=== PATIENT | female | born 1935 | race African-American/Black ===

== ENCOUNTER 2017-02-20 21:45 | Inpatient (IN) ==
[2017-02-21 01:46] LABS: MANUAL DIFF NEEDED? NO
[2017-02-21 01:53] LABS: URINE CULTURE NEEDED? NO; URINE MICRO REVIEW NEEDED? NO; URINE SOURCE CATH
[2017-02-21 02:00] LABS: BILIRUBIN URINE NEGATIVE (NEGATIVE); BLOOD URINE SMALL (NEGATIVE); COLOR YELLOW; GLUCOSE URINE TRACE mg/dL (NEGATIVE); LEUKOCYTES URINE NEGATIVE (NEGATIVE); NITRITE URINE NEGATIVE (NEGATIVE); PROTEIN URINE 100 mg/dL (NEGATIVE); SP GRAVITY URINE 1.011; TURBIDITY URINE CLEAR (CLEAR); UROBILINOGEN URINE NORMAL (NORMAL)
[2017-02-21 02:02] LABS: UR EPITHELIAL CELLS <10 /HPF (<10); URINE BACTERIA NEGATIVE /HPF; URINE RBC <10 /HPF (<10); URINE WBC <10 /HPF (<10)
[2017-02-21 02:18] LABS: ALBUMIN 3.2 g/dL (3.5-5.0); POTASSIUM 4.9 mmol/L (3.5-5.1); TOTAL BILIRUBIN 0.45 mg/dL (0.20-1.00); TOTAL PROTEIN 7.3 g/dL (6.3-8.3)
[2017-02-21 02:31] LABS: BASO% 0.1 % (0.0-0.8); EOS# 0.04 X1000 (0.0-0.7); EOS% 0.3 % (0.0-10.0); HEMATOCRIT 24.6 % (37.0-47.0); HEMOGLOBIN 8.1 g/dL (12.0-16.0); IMM GRAN# 0.08 X1000 (0.0-0.04); IMM GRAN% 0.6 % (0.0-0.5); LYMPH# 1.68 X1000 (1.2-3.4); LYMPH% 11.6 % (20.5-51.1); MCH 28.2 PG (27-31); MCHC 32.9 g/dL (33-37); MCV 85.7 FL (81-99); MONO# 2.04 X1000 (0.11-0.59); MONO% 14.1 % (1.7-9.3); MPV 11.1 FL (7.4-10.4); NEUT% 73.3 % (42.2-75.2); PLT 172 X1000 (130-400); RBC 2.87 XMIL (4.2-5.4)
--- NOTE | 2017-02-21 03:52 | ED EKG INTERP ---
This chart was entered by Karla Maria Scribe, acting as scribe for Jabier Ellington MD. EKG Interpretation - EKG Time of EKG reading by physician:: 21:45 EKG Read and Signed by:: Jabier Ellington EKG Interpretation (*Must complete 3 of following elements*): Abnormal Rate: 81 Rhythm: Normal sinus rhythm. [place]: left (PRT axis 15 -42 -5.) QRS: normal (QRS duration 92 ms.) MN Interval: normal (MN interval 168 ms.) Comments: Possible left atrial enlargement. Attestation - Physician/ DEEPIKA Attestation Patient care was provided by Advanced Practice Provider:: No The physician spent face to face time with patient:: Yes Advanced Practice Provider documentation review:: Supervising physician onsite and consulted in the evaluation and care of this patient. The physician did have a face to face encounter with the patient. This chart was documented by the indicated scribe, (Karla Maria Scribe) and accurately reflects the services I performed and decisions made by me, Jabier Ellington MD, as attested by the provider's signature.
[2017-02-21] MEDS ORDERED: NS 1,000 ML IV ONE ×2 (04:38→05:06)
[2017-02-21] MEDS ORDERED: AREDIA IV ONE (04:57)
[2017-02-21] MEDS ORDERED: NS IV ONE (04:57)
--- NOTE | 2017-02-21 04:57 | PROVIDER DOCUMENTATION ---
HPI-General Adult - General Chief Complaint: Weakness Stated Complaint: WEAKNESS Time Seen by Provider: 02/21/17 02:04 Source: patient, old records Allergies/Adverse Reactions: Patient Allergies Allergy/AdvReac Type Severity Reaction Status Date / Time No Known Allergies Allergy Verified 10/22/15 06:49 Home Medications: Home Medication List Medication Instructions Recorded Confirmed Last Taken Type Allopurinol 300 mg PO DAILY 11/17/13 02/11/17 11/10/16 04:00 History Clonidine [Catapres] 0.1 mg PO TID 11/17/13 02/11/17 11/10/16 04:00 History Omeprazole 20 mg PO DAILY 11/17/13 02/11/17 11/10/16 04:00 History Latanoprost 0.005% Oph Soln 1 drop RIGHT EYE HS 11/21/13 02/11/17 11/09/16 History [Xalatan 0.005% Oph Soln] ATORVAstatin [Lipitor] 20 mg PO QHS 10/18/15 02/11/17 11/09/16 History Dexamethasone 4 mg PO DIRECTED 10/18/15 02/11/17 10/21/15 07:00 History 4 Dorzolamide 2% Oph Soln [Trusopt 1 drop BOTH EYES BID 10/18/15 02/11/17 04:00 History 2% Oph Soln] Losartan Potassium 100 mg PO DAILY 10/18/15 02/11/17 11/08/16 History Amlodipine Besylate 5 mg PO DAILY 11/06/16 02/11/17 11/10/16 04:00 History Calcium Carbonate [Calcium] 600 mg PO DAILY 11/06/16 02/11/17 11/10/16 04:00 History Hydrocodone/Acetaminophen [[place] 1 each PO PRN PRN 11/06/16 02/11/17 2 Weeks Ago History 5-325 Tablet] Ipratropium/Albuterol Sulfate 3 ml IH Q4H PRN PRN 11/06/16 02/11/17 11/08/16 History [Iprat-Albut 0.5-3(2.5) mg/3 ml] Methylphenidate HCl [Ritalin] 10 mg PO DAILY 11/06/16 02/11/17 11/10/16 04:00 History Aspirin [Low Dose Aspirin EC] 81 mg PO DAILY 02/11/17 02/11/17 Unknown History Lidocaine/Prilocaine [Lido-Prilo 1 each TP PRN 02/11/17 Unknown History Paras Pack] - History of Present Illness -Gen Adult Nature of Presenting Problems: 81 yo RAMONA is under treatment for multiple myeloma by Dr Harley and was doing well until a week or so ago. She apparently received two units of packed RBC last week and felt a little better but the last week or so has been profoundly weak. Location of Pain/Injury: reports: none Similar Symptoms Previously?: No Recently seen or treated by another doctor?: No Review of Systems - Adult - REVIEW OF SYSTEMS - ADULT Constitutional: reports: see HPI. denies: chills, fever Eyes: reports: no symptoms reported Ears, Nose, Mouth & Throat: reports: no symptoms reported Cardiovascular: reports: no symptoms reported Respiratory: reports: no symptoms reported Gastrointestinal: reports: constipation, frequent heartburn Genitourinary: reports: no symptoms reported Integumentary: reports: no symptoms reported Neurological: reports: loss of balance Psychiatric: reports: no symptoms reported Endocrine: reports: see HPI Past History - Adult - PAST MEDICAL HISTORY-ADULT Review of Records: reports: Old Records Reviewed, Nursing Assessment Review, Medications Reviewed Major Childhood Illnesses: reports: denies history Cardiovascular: reports: HTN, hyperlipidemia Respiratory: reports: denies history Gastrointestinal: reports: GERD Obstetrical/Gynecological: reports: denies history Genitourinary: reports: kidney disease Musculoskeletal: reports: cancer (bone) Neurological: reports: denies history Endocrine/Immune: reports: denies history Other Conditions: reports: denies history - PRIOR SURGERIES/PROCEDURES Surgical/Procedure History: reports: cholecystectomy - PRIOR HOSPITALIZATIONS Prior Hospitalizations: reports: for other non-related - IMMUNIZATION STATUS Childhood Immunizations: See Nurse Assessment Flu Vaccine: See Nurse Assessment - FAMILY HISTORY Family History: reviewed, not pertinent Physical Exam-General - PHYSICAL EXAM-ADULT Initial Vital Signs Reviewed: Yes - CONSTITUTIONAL General Appearance: obese, lethargic, slow to respond - EYES Eyes: PERRL/EOMI, pale conjunctivae - HEAD, EARS, NOSE, MOUTH & THROAT HENMT: normocephalic/atraumatic, moist mucous membranes, normal ENT inspection - NECK Neck: non-tender, full range of motion, supple - RESPIRATORY Respiratory: chest non-tender, lungs clear, normal breath sounds - CARDIOVASCULAR Cardiovascular: normal peripheral pulses - GASTROINTESTINAL (ABDOMEN) Abdominal Exam: non tender, no organomegaly - LYMPHATIC Lymphatic: no adenopathy - MUSCULOSKELETAL Back Exam: normal inspection, no CVA tenderness, no vertebral tenderness Extremity: normal range of motion - SKIN Integumentary: normal color, normal turgor - NEUROLOGIC Neurologic: grossly normal Progress - PLAN OF CARE/RESULTS Progress/Plan/Lab Results: Vital Signs - 8 hr 02/20/17 21:51 02/21/17 00:43 02/21/17 02:25 Temperature 98.8 F Pulse Rate 87 76 86 Respiratory Rate 18 17 Blood Pressure 116/46 144/60 124/59 O2 Sat by Pulse Oximetry 97 92 L 91 L 02/21/17 04:29 Temperature Pulse Rate 110 H Respiratory Rate Blood Pressure 135/73 O2 Sat by Pulse Oximetry 92 L Laboratory Results - last 24 hr 02/21/17 02/21/17 02/21/17 01:15 01:15 01:40 WBC 14.43 H RBC 2.87 L Hgb 8.1 L Hct 24.6 L MCV 85.7 MCH 28.2 MCHC 32.9 L RDW Std Deviation 17.6 H Plt Count 172 MPV 11.1 H Immature Gran % (Auto) 0.6 H Neut % (Auto) 73.3 Lymph % (Auto) 11.6 L [place] % (Auto) 14.1 H Eos % (Auto) 0.3 Baso % (Auto) 0.1 Immature Gran # (Auto) 0.08 H Neut # (Auto) 10.58 H Lymph # (Auto) 1.68 [place] # (Auto) 2.04 H Eos # (Auto) 0.04 Baso # (Auto) 0.01 Sodium 132 L Potassium 4.9 Chloride 100 Carbon Dioxide 18 L Anion Gap 14 BUN 66 H Creatinine 6.5 H Estimated GFR/1.73 m2 7 BUN/Creatinine Ratio 10 Glucose 119 H Calculated Osmolality 285 Calcium 13.0 H* Total Bilirubin 0.45 AST 19 ALT 10 Alkaline Phosphatase 46 Total Protein 7.3 Albumin 3.2 L Globulin 4.1 Albumin/Globulin Ratio 0.8 Urine Source CATH Urine Color YELLOW Urine Turbidity CLEAR Urine pH 6.0 Ur Specific [place] 1.011 Urine Protein 100 A Ur Glucose (Stick) TRACE Ur Ketones (Stick) NEGATIVE Urine Blood SMALL A Urine Nitrite NEGATIVE Urine Bilirubin NEGATIVE Urobilinogen Dipstick NORMAL Urine Leukocytes NEGATIVE Urine WBC (Auto) <10 Urine RBC (Auto) <10 U Epithel Cells (Auto) <10 Urine Bacteria (Auto) NEGATIVE Orders Category Date Time Status BLOOD CULTURE [BLDCUL] Stat Lab 02/21/17 01:15 Results CBC WITH DIFF [HEME] Stat Lab 02/21/17 01:15 Completed COMPREHENSIVE METABOLIC PANEL [CHEM] Stat Lab 02/21/17 01:15 Completed I-STAT IONIZED CALCIUM [RESP] Routine Lab 02/21/17 04:43 Ordered URINALYSIS W/POSS RFLX CULT-1 [URINALYSIS] Stat Lab 02/21/17 01:40 Completed 0.9% Sodium Chloride Inj [Ns] 1,000 ml Med 02/21/17 04:38 Active IV 100 mls/hr EKG [EKG] Stat Ther 02/20/17 21:49 Ordered Result Diagrams: 02/21/17 01:15 02/21/17 01:15 - CONSULTS/PCP/HOSPITALIST Notification #1 *Consult/PCP/Hospitalist*: Dr Restrepo Time Discussed: 04:00 Consult Disposition: Will see in ED, Admit Departure - Departure Date of Disposition Decision: 02/21/17 Time of Disposition Decision: 04:00 DIAGNOSIS: Hypercalcemia of malignancy Acute renal failure Qualifiers: Acute renal failure type: unspecified Qualified Code(s): N17.9 - Acute kidney failure, unspecified Disposition: ADMITTED INPATIENT 09 Certified Medical Emergency: Emergent Condition: Poor - Critical Care Note This patient required my direct & personal management of CC.: Yes Total Time (mins): 30 Critical Care Statement: This patient required my direct personal management to treat or rule out processes, the absence of which, could potentiallly result in sudden, clinically significant life or limb threatening deterioration. Attestation - Physician/ DEEPIKA Attestation Patient care was provided by Advanced Practice Provider:: No The physician spent face to face time with patient:: Yes Advanced Practice Provider documentation review:: Supervising physician onsite and consulted in the evaluation and care of this patient. The physician did have a face to face encounter with the patient.
--- NOTE | 2017-02-21 07:03 | HISTORY AND PHYSICAL ---
PRIMARY CARE PROVIDER: Dr. Elfego Harley, oncologist. FIELD EDUCATION COORDINATOR: Dr. Moore. CHIEF COMPLAINT: Weakness in legs. HISTORY OF PRESENT ILLNESS: Briefly this is an unfortunate 81-year-old female with a history of multiple myeloma with mets to her bones, hypertension, COPD, anemia of chronic disease and end- stage renal disease. She presents to the emergency room today with a complaint of weakness in her legs. She reportedly saw Dr. Harley this previous Thursday. At any rate, she continued having increasing weakness to the point where she came into the emergency room tonight. Laboratory data was obtained which showed a white blood cell count of 14.43, hemoglobin and hematocrit of 8.1 and 24.6, a sodium of 132, a BUN of 66, a creatinine of 6.5, and a calcium of 13. The patient received pamidronate in the emergency room. No family was at the bedside at the time of interview. The patient was a fairly poor historian. The treatment plan was gone over with the patient and she did state that she understood she will be admitted to CICU for further evaluation and treatment. PAST MEDICAL HISTORY: 1. Multiple myeloma with bone mets. 2. COPD. 3. Gout. 4. Hypertension. PREVIOUS SURGICAL HISTORY: 1. A knee surgery. 2. Cholecystectomy. 3. Right Port-A-Cath placement. SOCIAL HISTORY: Lives at home with her daughter. Has a remote history of tobacco use. The patient was unsure what year she quit. Denies alcohol or illicit drug use or abuse. FAMILY HISTORY: Father from myocardial infarction. The patient was unable to tell me any other chronic health issues in family members. ALLERGIES: No known drug allergies. HOME MEDICATIONS: The list was not reconciled. The patient did state that her son has a list of her medications. He was not available at the time of interview. An order was placed for nursing to reconcile home medications and place in the computer. REVIEW OF SYSTEMS: Fourteen point review of systems conducted with the patient. Pertinent positives listed above in the HPI. All other systems reviewed and found to be negative. PHYSICAL EXAMINATION: VITAL SIGNS: Temperature 98.8 degrees, pulse 110, respirations 135/73, oxygen saturation 94% on room air. GENERAL: Pleasant, 81-year-old, female, somewhat confused to some details of her medical history, lying in the ER stretcher. Is awake, alert, oriented to person , place, and time. In no acute distress. HEENT: Head is atraumatic, normocephalic. Pupils equal, round, reactive to light. Extraocular eye movement is intact. Sclerae is anicteric. Conjunctivae is pale. Oral mucosa is mildly dry. NECK: Supple. No JVD. No thyromegaly. Trachea is midline. No cervical lymphadenopathy. CARDIAC: S1, S2 appreciated. No murmurs, gallops, or rubs. LUNGS: Somewhat decreased bilaterally. Mild expiratory wheeze heard in the upper lung marcum does clear with cough. No rhonchi. No rales. Symmetrical rise and fall with respirations. ABDOMEN: Soft, nondistended, nontender. Bowel sounds present in all 4 quadrants. Normoactive. No pulsatile mass. No organomegaly. EXTREMITIES: No clubbing, cyanosis, or edema. 2+ pedal pulses bilaterally. GENITOURINARY: Breaux catheter in place draining clear yellow urine. Otherwise deferred. NEUROLOGICAL: Alert, alert and oriented to person, place, and time. She is somewhat confused to some aspects of her medical history but is appropriate. Cranial nerves 2-12 appear to be grossly intact. MUSCULOSKELETAL: 4/5 upper extremity strength, equal bilaterally. 3/5 lower extremity strength equal bilaterally. Patient is able to hold lower extremities against gravity. SKIN: Warm, dry and intact. No acute lesions or rash. DIAGNOSTIC DATA: EKG showed a normal sinus rhythm, rate 81 with left axis deviation, possible left atrial enlargement. LABORATORY DATA: WBC 14.43, hemoglobin 8.1, hematocrit 24.6, platelet count 172 ,000. Sodium 132, potassium 4.9, chloride 100, carbon dioxide 18. BUN 66, creatinine 6.5. Glucose 119. Calcium 13. Urine 100 of protein, otherwise unremarkable. ASSESSMENT AND PLAN: 1. Hypercalcemia this is likely secondary to multiple myeloma with bone mets. Pamidronate was given in the emergency room. The patient also received normal saline, 500 mL. We will consult Dr. Moore and Dr. Harley. Recheck calcium level at noon today. Check ionized calcium. If pamidronate and fluids are unsuccessful, patient may possibly need acute dialysis with a low calcium bath. 2. Chronic obstructive pulmonary disease without exacerbation. Aware. Will add p.r.n. DuoNeb as needed for wheezing. 3. Hypertension. Patient is normotensive at this time. An order was placed for nursing to reconcile home medications. These will be restarted when appropriate. 4. Anemia likely of chronic disease. This appears to be stable. We will order anemia panel and trend labs. 5. Further recommendations per clinical course. Dictated by MINDI Alejo for Arnoldo Restrepo MD I have personally evaluated and did physical exam on patient. Dr. Restrepo cc: MINDI Alejo MD Reginald D. Gladish, MD Sammy Becdach, MD MTDD
[2017-02-21] MEDS: PROTONIX IV SCH (07:50)
[2017-02-21] MEDS ORDERED: NS 1,000 ML ONE (07:53)
[2017-02-21] MEDS ORDERED: TIGHT: 0.2 ML/HR MISC PRN (09:42)
[2017-02-21] MEDS ORDERED: NS 2,000 ML MISC PRN (09:42)
[2017-02-21] MEDS ORDERED: HEPARIN IV PRN (09:42)
[2017-02-21] MEDS ORDERED: HEPARIN ONE (10:37)
[2017-02-21] MEDS ORDERED: NS 2,000 ML ONE (10:37)
[2017-02-21] MEDS ORDERED: EPOGEN SUBQ ONE (13:52)
[2017-02-21] MEDS: HEPARIN SUBQ SCH ×2 (15:08→20:45)
--- NOTE | 2017-02-21 16:44 | CONSULTATION ---
DATE OF CONSULTATION: 02/21/2017 REASON FOR CONSULTATION: For multiple myeloma, hypercalcemia, patient known. HISTORY OF PRESENT ILLNESS: Ms. Mcconnell is a 81-year-old, female, who is known to our practice as she is currently under the care of Dr. Elfego Harley for multiple myeloma. The patient presented to the [facility] Emergency Department earlier today complaining of weakness in her bilateral legs. Labs revealed the patient to have elevated calcium level at 13 with a creatinine of 6.5. The patient received pamidronate in the emergency room. Plan was for the patient to be evaluated by Nephrology. It seems that the patient was seen on 02/18/2017 in our office. She has been experiencing renal failure for some time. Her creatinine on 02/18/2017 in our office was 6.81. At that time, she also had a calcium of 13.4 corrected. On 02/18/2017, the patient received 2 mg of Zometa. Dose reduction was done secondary to the patient's renal function. Patient did contact our office yesterday reporting a 102 temperature. At that time, she was told to come to the emergency department. Emergency department workup as per above. The patient has been receiving Velcade and Decadron for her multiple myeloma. She is also currently receiving Aranesp. She received her Velcade, Aranesp also on 02/18/2017. Patient is status post [facility] at the end of January. The patient currently reports that she is doing okay. Per the nursing staff, the patient is due to go to dialysis at this time. PAST MEDICAL HISTORY: 1. Multiple myeloma with bone disease. 2. COPD. 3. Gout. 4. Hypertension. 5. Renal insufficiency. PREVIOUS SURGERY: 1. Status post knee surgery. 2. Cholecystectomy. 3. Port-A-Cath placement. SOCIAL HISTORY: Patient currently lives with her daughter. Her son is here with her today. She has a remote history of tobacco use. The patient quit smoking about 1 year ago. She denies any current alcohol or illicit drug use. FAMILY HISTORY: She has a father who from a myocardial infarction. The patient is a poor historian and was unable to give any further family history. REVIEW OF SYSTEMS: A 12 point review of systems has been completed and is negative except for what is expressed in the HPI. PHYSICAL EXAMINATION: Vital Signs: Temperature 98.2 degrees, heart rate 88, respirations 16, blood pressure 133/66, O2 saturation 97% on 3 L nasal cannula. General: This is an female, lying in a hospital bed in the emergency department. She appears to be comfortable. She is in no acute distress. Son is at bedside. HEENT: Head normocephalic, atraumatic. Eyes: Pupils equal, round, reactive. Ears, nose, throat, neck, and mouth: Oral mucosa appears to be normal. Trachea is midline. Gross auditory acuity is intact. Cardiovascular: S1-S2 heard. No murmurs, gallops, rubs appreciated. Respiratory: Chest is essentially clear to auscultation bilaterally. Normal respiratory effort. Gastrointestinal: Abdomen is soft, nontender, nondistended with positive bowel sounds. Musculoskeletal: No obvious bony abnormalities. Extremities: The patient has some trace edema bilateral lower extremities. Neurologic: Patient is alert and oriented, with no focal motor deficits noted. LABS AND STUDIES: White blood cells 14.43, hemoglobin 8.1, hematocrit 24.6, platelet count 172,000. Ionized calcium 1.89, sodium 132, potassium 4.9, chloride 100, CO2 18 , BUN 66, creatinine 6.5, glucose 119. Calcium 13.0. EKG done earlier today shows the patient to be in normal sinus rhythm. ASSESSMENT: 1. Multiple myeloma. Currently on Velcade and dexamethasone. Last treatment received 02/18/2017. The patient's last SPEP done on 02/04/2017 appears to be overall stable, M-spike 1 at that time was 0.5, M-spike 2 was 0.3. This was improved from her last check in December. 2. Hypercalcemia. Likely due to both her bone metastases as well as multiple myeloma as well as renal insufficiency. The patient is status post Zometa on 02/18/2017. She has also now received pamidronate here at the hospital. According to orders from Dr. Moore, the patient is now going to hemodialysis. 3. Renal insufficiency. The patient has a history of chronic kidney disease, stage 4. She has already had a fistula placed. She is being followed by Nephrology prior to this admission. Hemodialysis as per above per Dr. Moore. 4. Chronic obstructive pulmonary disease. Continue current management. 5. Hypertension. Continue current management. 6. Anemia likely secondary to chronic disease as well as her multiple myeloma. The patient has recently received iron repletion and she is status post Aranesp injection on 02/18. Hemoglobin appears to be close to her baseline. 7. Leukocytosis. Patient is taking steroids for multiple myeloma. She had leukocytosis early this week when she was seen. Blood cultures are currently pending. She did report a fever which prompted her to be told to come to the emergency department. Follow up on cultures. We want to thank you for consulting us on Ms. Mcconnell and allowing us to participate in her care. Dictated by CARL Bashir for Carmen Nguyen MD cc: MD Yeimi Wallace MD I have seen and examined the patient , reviewed the chart, and agree with the above note. The assessment and plan reflects my recommendations. Carmen AMAYA
--- NOTE | 2017-02-21 20:49 | CONSULTATION ---
DATE OF CONSULTATION: 02/21/2017 REASON FOR CONSULTATION: Renal failure and hypercalcemia. HISTORY OF PRESENT ILLNESS: Ms. Mcconnell is a 81-year-old woman who follows with us in the office. She has known CKD stage 5 secondary to myeloma. She was examined in our office earlier this week but did not have labs collected. They were collected after her encounter and her creatinine was over 6 and calcium was 13. Over the ensuing days she became much more weak and ultimately was unable to meet her own physical needs so she came to the emergency room. No chest pain, nausea, vomiting, shortness of breath. PAST MEDICAL HISTORY: As above. She is followed by Dr. Harley. HOME MEDICATIONS: Include allopurinol, clonidine, atorvastatin, losartan, methylphenidate, amlodipine. ALLERGIES: None. SOCIAL HISTORY: She lives with her daughter. No current alcohol or tobacco use. FAMILY HISTORY: Noncontributory. REVIEW OF SYSTEMS: Otherwise noncontributory. PHYSICAL EXAM: Vital Signs: Blood pressure 133/66, heart rate 88, respirations 16, afebrile. General: She is in no acute distress. Skin: Warm and dry. Conjunctivae are pink. Neck: Neck veins are not appreciated. Trachea is midline. Heart: Regular. Lungs: Have equal breath sounds. No dullness, crackles, wheezes. Abdomen: Soft, nontender. Bowel sounds present. No organomegaly or masses or bruits. Extremities: Have trace edema. No clubbing or cyanosis. IMPRESSION: Chronic kidney disease stage 5. Given her progressive symptoms and unmanaged hypercalcemia, dialysis is indicated. She has a fistula in the left arm which we are able to cannulate without difficulty today. She is on dialysis at the time of my examination at 12 o'clock. We will use a 2 calcium bath and 2 potassium bath and a 2 hour duration today. Her next scheduled dialysis will be Thursday. Her hemoglobin is below target and this will need to be treated with ongoing erythropoietin. Her hypercalcemia was treated with a dose of pamidronate in the emergency room so no further bisphosphonate therapy will be indicated for the short term. cc: MD Yeimi Anaya MD
--- NOTE | 2017-02-22 04:09 | PROGRESS NOTE ---
DATE: 02/21/2017 SUBJECTIVE: Patient without any new complaints. She states that she is still very tired and fatigued. Notes that she is starting to move her lower extremities a little bit better. Denies focalized weakness. States that both are weak. Denies any weakness in her upper extremities. Denies any chest pain or palpitations. Denies any fevers or chills. Denies GI or issues. PHYSICAL EXAMINATION: Vital Signs: Temperature 98.2 degrees, pulse 110, respiratory rate 18-20, BP 144/62, saturation 91% on room air. General: Patient is awake, alert. She is currently in no respiratory distress. Neck: Supple. No JVD. CV: Regular rate. No murmurs. Chest: Clear. Nonlabored. Abdomen: Soft, nondistended, nontender. Extremities: Moves upper extremities well. She has generalized weakness of her lower extremities. LABORATORY DATA: WBCs 14. Sodium 132, BUN 60, creatinine 6.5. ASSESSMENT: 1. Frequent falls due to generalized weakness in her lower extremities. 2. Generalized weakness. 3. Hypercalcemia. 4. Multiple myeloma. 5. Hypertension. 6. Chronic obstructive pulmonary disease without exacerbation. PLAN: We will admit patient to the hospital. She has already been given pamidronate in the ER. We will continue to follow her calcium. We will get physical therapy involved for her lower extremity weakness. Her repeat calcium is pending. Should it still be elevated, we will consult Dr. Moore. cc: MD Yeimi Cross MD
[2017-02-22] MEDS: HEPARIN SUBQ SCH ×3 (04:43→21:29)
[2017-02-22 05:40] LABS: MANUAL DIFF NEEDED? NO
[2017-02-22 05:48] LABS: BASO% 0.1 % (0.0-0.8); EOS# 0.04 X1000 (0.0-0.7); EOS% 0.2 % (0.0-10.0); HEMATOCRIT 24.7 % (37.0-47.0); HEMOGLOBIN 8.2 g/dL (12.0-16.0); IMM GRAN# 0.07 X1000 (0.0-0.04); IMM GRAN% 0.4 % (0.0-0.5); LYMPH# 0.88 X1000 (1.2-3.4); LYMPH% 5.4 % (20.5-51.1); MCH 28.6 PG (27-31); MCHC 33.2 g/dL (33-37); MCV 86.1 FL (81-99); MONO# 2.42 X1000 (0.11-0.59); MPV 11.6 FL (7.4-10.4); NEUT% 78.9 % (42.2-75.2); PLT 191 X1000 (130-400); RBC 2.87 XMIL (4.2-5.4)
[2017-02-22 05:56] LABS: CALCIUM 10.7 mg/dL (8.8-10.2); POTASSIUM 4.2 mmol/L (3.5-5.1)
[2017-02-22] MEDS: PROTONIX IV SCH (08:18)
--- NOTE | 2017-02-22 15:34 | PROGRESS NOTE ---
DATE: 02/22/2017 SUBJECTIVE: Patient complains of left-sided abdominal pain at this point. The patient without new complaints this morning. Denies any chest pain, palpitations. Denies any nausea or vomiting. States that her breathing is a little bit better. OBJECTIVE: Vital signs: Temperature 100.7, pulse 98, respiratory 18-20, BP 111/47. General: Patient is awake, alert. Currently in no real respiratory distress. Pleasant to talk with. Neck: Supple. No JVD. CV: Regular rate. Chest: Clear. Nonlabored. Abdomen: Soft, obese. Extremities: Moves all extremities. ASSESSMENT: 1. Hypercalcemia, improved. Current calcium is at 10.7. She received pamidronate in the ER and also want to dialysis yesterday. 2. Leukocytosis. Mildly elevated at 16. Will continue to follow. 3. Chronic renal failure stage 5. She did receive a hemodialysis yesterday and per Dr. Moore will receive dialysis again tomorrow. 4. Chronic obstructive pulmonary disease. Continue neb treatments. cc: MD Yeimi Cross MD
[2017-02-23] MEDS: HEPARIN SUBQ SCH ×3 (04:03→20:31)
--- NOTE | 2017-02-23 05:49 | EKG Report ---
Test Performed on : 02/22/2017 07:02:26 AM Test Reason : chest pain Blood Pressure : / mmHG Vent. Rate : 097 BPM Atrial Rate : 097 BPM P-R Int : 170 ms QRS Dur : 094 ms QT Int : 326 ms P-R-T Axes : 023 -36 005 degrees QTc Int : 414 ms Sinus rhythm. with premature atrial complexes. Left axis deviation Cannot rule out Anterior infarct , age undetermined Abnormal ECG When compared with ECG of 20-FEB-2017 21:45, (Unconfirmed) premature atrial complexes. are now present Unconfirmed Result
[2017-02-23 06:13] LABS: CALCIUM 10.4 mg/dL (8.8-10.2); POTASSIUM 4.5 mmol/L (3.5-5.1)
--- NOTE | 2017-02-23 06:45 | EKG Report ---
Test Performed on : 02/20/2017 9:45:14 PM Test Reason : WEAKNESS Blood Pressure : / mmHG Vent. Rate : 081 BPM Atrial Rate : 081 BPM P-R Int : 168 ms QRS Dur : 092 ms QT Int : 356 ms P-R-T Axes : 015 -42 -05 degrees QTc Int : 413 ms Normal sinus rhythm. Possible Left atrial enlargement Left axis deviation Abnormal ECG When compared with ECG of 06-NOV-2016 11:39, No significant change was found Unconfirmed Result
[2017-02-23] MEDS ORDERED: NS 2,000 ML MISC PRN (06:50)
[2017-02-23] MEDS ORDERED: TIGHT: 0.2 ML/HR MISC PRN (06:50)
[2017-02-23] MEDS ORDERED: HEPARIN IV PRN (06:50)
[2017-02-23] MEDS: PROTONIX IV SCH (08:17)
[2017-02-23] MEDS: SODIUM CHLORIDE 0.9% INJ SCH (08:17)
[2017-02-23] MEDS ORDERED: MERREM 500 MG in NS 50 ML IV SCH (09:00)
--- NOTE | 2017-02-23 10:00 | Diag Imaging Result Doc PS360 ---
CHEST-2 VIEWS - 02/23/2017 INDICATION: Fever; Leukocytosis TECHNIQUE: COMPARISON: 01/25/2014 FINDINGS: There is a new right chest port in good position. Stable severe cardiomegaly. Pulmonary vascularity is top normal. There is some infiltrate in the left lower lobe. No pneumothorax or large effusion. IMPRESSION: Left lower lobe infiltrate concerning for pneumonia. Severe cardiomegaly. Electronically signed by Amrik Romano 02/23/2017 9:57 AM
[2017-02-23] MEDS ORDERED: VANCOMYCIN IV PER PHARMACY MISC SCH (11:15)
[2017-02-23] MEDS ORDERED: HEPARIN ONE (11:16)
[2017-02-23] MEDS ORDERED: NS 2,000 ML ONE (11:16)
--- NOTE | 2017-02-23 12:22 | PROGRESS NOTE ---
DATE: 02/23/2017 TIME SEEN: 0810 SUBJECTIVE: Ms. Mcconnell is resting quietly in bed. Head of the bed is elevated. Her son is at her bedside. She is in no acute distress, though she does remain chronically ill. OBJECTIVE: Her most recent vital signs: Previous temperature 100.4 degrees, blood pressure 116/50, heart rate is 100, respirations are 24. She remains on 2 L nasal cannula. Last recorded saturation is 98%. She has had 720 in. She has had 925 out per Breaux catheter. Her most recent labs: Sodium 132, potassium 4.5, chloride 94, CO2 23, BUN 45, creatinine 5.6, glucose 108, anion gap 15, calcium 10.4, phosphorus 2.1. Albumin of 3. Previous hemoglobin 8.2 on the with a white count of 16.18. PHYSICAL EXAMINATION: General: This is a 81-year-old female. She is currently resting in bed. She is in no acute distress. Skin: Warm and dry. HEENT: Normocephalic, atraumatic. Conjunctiva is pale. She has KYRA. Mucous membranes are moist. Neck: Supple. Trachea midline. No JVD evident. Cardiovascular: She is regular rate and rhythm. She does have a positive S4. Lungs: Clear to auscultation anteriorly. Diminished posterior bases. She remains on O2. Equal excursion. The patient has a port to her right chest wall. Abdomen: Soft, nontender. Positive bowel sounds. Genitourinary: Breaux catheter remains in place. Adequate urine out. Extremities: Have trace pretibial edema. No clubbing or cyanosis. Extremities as indicated with no edema. No clubbing or cyanosis. She has an AV fistula to the left forearm with positive thrill. ASSESSMENT AND PLAN: 1. Chronic kidney disease stage 5 with progression. Patient remains uremic. She continues with hypercalcemia. She could has continued to have adequate urine output. Again , we will plan for dialysis today. We will place her on a 2 K bath. She is to dialyze for 2-1/2 hours. We will attempt to pull 2-3 L of ultrafiltration, with plans for hemodialysis over the next 3 days to build patient up to a 4-hour treatment. 2. Electrolytes. Patient has mild hyponatremia secondary to #1. Hypercalcemia - This continues to improve with a calcium down to 10.4. Patient was originally treated with pamidronate in the emergency room with no other further indications with correction on dialysis. 3. Acid-base balance. Patient has mild anion gap acidosis, which is currently closing with metabolic acidosis which is improving. Correction on dialysis is noted. 4. Anemia, this remains stable. No indications for intervention at this time. I would to thank you for allowing us to follow with this patient. Dictated by MINDI Bañuelos for Ye Moore MD Patient seen, data reviewed, discussed with Geoffrey Rosenbaum on 02/23/17. I agree with the above assessment and plan of care. cc: MINDI Bañuelos MD Adnan A. Seljuki, MD [facility]
[2017-02-23] MEDS: MAXIPIME 1 GM in NS 50 ML IV SCH (13:09)
[2017-02-23 13:14] LABS: HEPATITIS PROFILE ACUTE SEE COMMENTS
[2017-02-23] MEDS ORDERED: VANCOMYCIN 1 GM/NS 1 GM/250 ML IVPB IV ONE (14:00)
[2017-02-23] MEDS ORDERED: VANCOMYCIN 1 GM/NS 1 GM/250 ML IVPB IV SCH (16:00)
[2017-02-23] MEDS: EPOGEN SUBQ SCH (16:59)
--- NOTE | 2017-02-23 16:59 | CONSULTATION ---
DATE OF CONSULTATION: 02/23/2017 CONCLUSION: Dr. Mancini asked me to see the patient regarding leukocytosis. I think this is secondary to a left lower lobe pneumonia. RECOMMENDATIONS: I have discontinued meropenem and placed the patient on cefepime. The dose has been modified because of the patient's renal failure. Also I have added vancomycin and requested the pharmacy to dose the drug. I have also ordered a sputum for Gram stain and culture. DISCUSSION: The patient told me that she was admitted to the hospital because her legs were weak for the past 2 weeks. She denied having shortness of breath or coughing. She was not having any fever chills that she can remember. LAB AND X-RAY: Laboratory studies thus far show a CBC with a white count of 16,180, hemoglobin 8.2, and platelet count 191,000. Creatinine is 5.6, GFR is 9. Urinalysis showed no white cells or bacteria. Blood cultures x2 and urine culture show no growth. More recent blood cultures have been drawn and the results are pending. Chest x-ray shows a left lower lobe infiltrate. PAST MEDICAL HISTORY/REVIEW OF SYSTEMS: Eyes and ears: The patient says she has decrease in her vision but not her hearing. Neck: No stiffness. Respiratory: She is not complaining of cough or dyspnea. Cardiovascular: No chest pain or palpitations. GI: No nausea, vomiting, or diarrhea. Genitourinary: No dysuria or flank pain. Endocrine: Patient does not have diabetes or thyroid disease. Neurologic: Patient has weak legs. She has not had any seizures or tremor. MANAGER BOOK HISTORY: She is a 4, para 4, AB 0. INFECTIOUS DISEASE HISTORY: Positive for pneumonia. Negative for UTI. PREVIOUS HOSPITALIZATIONS AND OPERATIONS: She has had knee surgery, cholecystectomy, placement of a right-sided Port-A-Cath, and 4 labor and deliveries. MEDICAL DISEASES: Positive for multiple myeloma, COPD, gout, hypertension, and hyperlipidemia. FAMILY HISTORY: Positive for myocardial infarction. The patient could not remember any other illnesses in the family. SOCIAL HISTORY: The patient lives at home with her daughter. She smoked cigarettes some time in the past but not recently. She did not does not drink alcoholic beverages or abuse drugs. She does not have any pets at home. ALLERGIES: She has no known drug allergies. HOME MEDICATIONS: Consist of Catapres, allopurinol, Lipitor, Norvasc, Ritalin, and losartan. PHYSICAL EXAMINATION: Vital Signs: Temperature is 100.4 degrees, pulse 100, respirations 24, blood pressure 116/50. General: This is a chronically ill-appearing, elderly female. She is in no acute distress. Head, eyes, ears, nose, and throat: She can hear my spoken words and see near objects. She had dentures on the bottom, in the mandibular area. She did not have any teeth in the maxillary area. Neck: No meningismus. Thorax: No increased AP diameter of the chest. The patient has a Port-A-Cath present on the right side. The site is not swollen or tender. Lungs: Clear to auscultation. Cardiovascular: Heart rate is irregular. There is bilateral leg edema. There were diminished peripheral pulses. Abdomen: Soft and nontender. Neurologic: Patient is awake. She can move her extremities but she is weak. There is no tremor. Thank you for the consult. cc: MD Yeimi Jean MD
[2017-02-24] MEDS: HEPARIN SUBQ SCH ×3 (04:40→20:20)
[2017-02-24] MEDS: TYLENOL PO PRN ×2 (05:48→20:20)
[2017-02-24 05:56] LABS: ALBUMIN 2.8 g/dL (3.5-5.0); CALCIUM 8.5 mg/dL (8.8-10.2); POTASSIUM 3.8 mmol/L (3.5-5.1)
[2017-02-24] MEDS ORDERED: TIGHT: 0.2 ML/HR MISC PRN (07:12)
[2017-02-24] MEDS ORDERED: HEPARIN IV PRN (07:12)
[2017-02-24] MEDS ORDERED: NS 2,000 ML MISC PRN (07:12)
[2017-02-24] MEDS: PROTONIX IV SCH (07:45)
--- NOTE | 2017-02-24 08:25 | PROGRESS NOTE ---
DATE: 02/24/2017 PRESENT ILLNESS: The patient has a left lower lobe pneumonia. I think this is responsible for her leukocytosis and fever. MEDICATIONS: The patient currently is on vancomycin and cefepime, both being given intravenously. The doses of both also have been modified because of the patient's renal failure. PHYSICAL EXAMINATION: Vital Signs: Temperature is 102.3 degrees, pulse 97, respirations 14, blood pressure 108/35. Generally, this is an ill-appearing elderly female. She is in no acute distress. Lungs: Clear to auscultation. Cardiovascular: Heart rate is irregular. Abdomen is soft and nontender. Thorax: The patient has a Port-A-Cath present in the right side of her chest. The site is not swollen or tender. Neurologic: The patient is sleepy today. There is no tremor. LABORATORY DATA AND X-RAY: Creatinine is 4.5. GFR is 11. Blood and urine cultures are sterile. Chest x-ray shows a left lower lobe infiltrate that is concerning for pneumonia. PLAN: The plan is to continue with both antibiotics, namely vancomycin and cefepime. I realize that she did spike a fever and that she still has leukocytosis, however, I think it is going to take a few days before we see the full effect of the antibiotics working. I do plan on ordering a CBC for tomorrow morning. Comorbidities: Multiple myeloma, COPD. cc: MD Yeimi Jean MD
[2017-02-24] MEDS ORDERED: HEPARIN ONE (08:26)
[2017-02-24] MEDS ORDERED: NS 2,000 ML ONE (08:26)
[2017-02-24 08:27] LABS: BASO% 0.1 % (0.0-0.8); EOS# 0.05 X1000 (0.0-0.7); EOS% 0.2 % (0.0-10.0); HEMATOCRIT 21.6 % (37.0-47.0); HEMOGLOBIN 7.1 g/dL (12.0-16.0); IMM GRAN# 0.14 X1000 (0.0-0.04); IMM GRAN% 0.7 % (0.0-0.5); LYMPH% 5.8 % (20.5-51.1); MANUAL DIFF NEEDED? YES; MCH 28.1 PG (27-31); MCHC 32.9 g/dL (33-37); MCV 85.4 FL (81-99); MONO# 3.27 X1000 (0.11-0.59); MONO% 15.8 % (1.7-9.3); MPV 11.9 FL (7.4-10.4); NEUT% 77.4 % (42.2-75.2); PLT 194 X1000 (130-400); RBC 2.53 XMIL (4.2-5.4)
[2017-02-24 08:45] LABS: BANDS 2 % (0-1); LYMPHS 8 % (21-51); MONO 6 % (1-9)
[2017-02-24 08:46] LABS: HYPOCHROM 1+
[2017-02-24] MEDS: MAXIPIME 1 GM in NS 50 ML IV SCH (14:19)
--- NOTE | 2017-02-24 15:49 | PROGRESS NOTE ---
DATE: 02/24/2017 TIME SEEN: 0840. SUBJECTIVE: Ms. Mcconnell is currently resting in bed. The head of the bed is elevated. Her son is at the bedside assisting her to eat her breakfast. She states that she is sleepy. She denies any chest pain or increased work of breathing. OBJECTIVE: Vital signs: Temperature 102.3 degrees, blood pressure 108/35, heart rate 97, respirations 14. She is on 3 L nasal cannula. Last saturation of 99%. She has had 280 in. She has had 1500 out with 1 L on dialysis. PHYSICAL EXAMINATION: General: This is a 81-year-old, female. She is sitting up in bed. She appears chronically ill. She is in no acute distress. Skin: Warm and dry. HEENT: Normocephalic, atraumatic. Conjunctivae pale. She has KYRA. Mucous membranes are moist. Neck: Supple. Trachea midline. No JVD. Cardiovascular: Regular rate and rhythm. Positive S4. Lungs: Clear to auscultation anteriorly. Equal excursion on O2. Abdomen: Round, soft, nontender. Positive bowel sounds. Genitourinary: Breaux catheter remains in place with adequate urine out. Extremities: Trace pretibial edema. No clubbing or cyanosis. ___ ____Extremities with no edema. AV fistula noted to the left forearm. LABORATORIES: Sodium 131, potassium 3.8, chloride 93, CO2 25, BUN 33, creatinine 4.5, glucose 117. Anion gap 13, calcium 8.5, phosphorus 1.5, albumin 2.8. White count 16.18. Hemoglobin 8.2, hematocrit 24.7, with a platelet count of 191,000. ASSESSMENT AND PLAN: 1. Chronic kidney disease stage 5. Patient has progressed to endstage renal disease. She remains uremic. She remains on hemodialysis. We will plan for dialysis today and for tomorrow to attempt to clean patient's blood and assist with her uremic symptoms. She is to dialyze today on a 3K bath. We will dialyze her for 3.5 hours. We will attempt to pull 1-2 L of ultrafiltration. 2. Electrolytes. Patient has mild hyponatremia. Again, this is secondary to # 1 with correction on dialysis. Hypercalcemia. Patient's calcium is 8.5 today with correction on dialysis. We will continue to monitor. 3. Acid-base balance. This remains stable. 4. Anemia. This remains very low, but has remained stable. 5. Uremic symptoms. The son states the patient remains lethargic and confused. We will hope with attempts that this will start to improve with continued dialysis. I would to thank you for allowing us to follow with this patient. Dictated by MINDI Bañuelos for Ye Moore MD Patient seen, data reviewed, discussed with Geoffrey Rosenbaum on 02/24/17. I agree with the above assessment and plan of care. cc: MINDI Bañuelos MD Adnan A. Seljuki, MD [facility]
[2017-02-24] MEDS ORDERED: VANCOMYCIN 1 GM/NS 1 GM/250 ML IVPB IV ONE (17:00)
[2017-02-25] MEDS: HEPARIN SUBQ SCH ×3 (04:57→21:20)
[2017-02-25 06:04] LABS: ALBUMIN 2.9 g/dL (3.5-5.0); CALCIUM 8.1 mg/dL (8.8-10.2); POTASSIUM 3.8 mmol/L (3.5-5.1)
[2017-02-25 07:05] LABS: BASO% 0.1 % (0.0-0.8); EOS# 0.08 X1000 (0.0-0.7); EOS% 0.4 % (0.0-10.0); HEMATOCRIT 26.2 % (37.0-47.0); HEMOGLOBIN 8.6 g/dL (12.0-16.0); IMM GRAN# 0.17 X1000 (0.0-0.04); IMM GRAN% 0.8 % (0.0-0.5); LYMPH# 1.23 X1000 (1.2-3.4); LYMPH% 5.6 % (20.5-51.1); MANUAL DIFF NEEDED? YES; MCH 28.4 PG (27-31); MCHC 32.8 g/dL (33-37); MCV 86.5 FL (81-99); MONO# 2.51 X1000 (0.11-0.59); MONO% 11.4 % (1.7-9.3); NEUT% 81.7 % (42.2-75.2); PLT 185 X1000 (130-400); RBC 3.03 XMIL (4.2-5.4)
[2017-02-25] MEDS ORDERED: NS 2,000 ML MISC PRN (07:12)
[2017-02-25] MEDS ORDERED: HEPARIN IV PRN (07:12)
[2017-02-25] MEDS ORDERED: TIGHT: 0.2 ML/HR MISC PRN (07:12)
[2017-02-25 07:23] LABS: BANDS 1 % (0-1); LYMPHS 5 % (21-51); MONO 8 % (1-9)
--- NOTE | 2017-02-25 08:11 | PROGRESS NOTE ---
DATE: 02/25/2017 PRESENT ILLNESS: The patient has left lower lobe pneumonia. MEDICATIONS: The patient has been now on a combination of vancomycin and cefepime for 2 days. PHYSICAL EXAMINATION: Vital Signs: Temperature is 99.3 degrees, pulse 103, respirations 18, blood pressure 124/51. General: This is an ill-appearing elderly female. She is in no acute distress. Lungs: Clear to auscultation. Cardiovascular: Heart tones were regular. Abdomen: Soft and nontender. Neurologic: Patient is lethargic. LAB AND X-RAY: There is no new x-ray today. Patient's CBC shows a white count of 22,010, hemoglobin 8.6, platelet count 185,000, creatinine is 5.1, GFR is 10. Hepatitis panel was nonreactive. Blood and urine cultures thus far are sterile. ASSESSMENT AND PLAN: The patient has pneumonia. My plan involves continuing with her current medications, even though her white count is not coming down. I am going to also, for tomorrow, get a portable chest x-ray, CBC, and BMP in the morning. COMORBIDITIES: Include multiple myeloma and chronic obstructive pulmonary disease. cc: MD Yeimi Jean MD
[2017-02-25] MEDS: PROTONIX IV SCH (08:30)
[2017-02-25] MEDS ORDERED: HEPARIN ONE (10:42)
[2017-02-25] MEDS ORDERED: NS 2,000 ML ONE (10:42)
--- NOTE | 2017-02-25 10:49 | PROGRESS NOTE ---
DATE: 02/25/2017 SUBJECTIVE: Ms. still is resting quietly in bed. She denies any pain. She states it is too early to decide how she feels today. OBJECTIVE: Her most recent vital signs are temperature 99.3 degrees, blood pressure 124/51, heart rate 103, respirations 18. She is on 3 L nasal cannula. Last recorded saturation 100%. She has had 1180 in, she has had 1400 out per Breaux and per hemodialysis. LABS: Sodium 134, potassium 3.8, chloride 93, CO2 25, BUN 35, creatinine 5.1, glucose 108, anion gap 16, calcium 8.1, phosphorus 1.6. Albumin 2.9. White count 22.01, hemoglobin 8.6, hematocrit 26.2, with a platelet count of a 185,000. Blood cultures are negative after 5 days. Urine cultures are negative. PHYSICAL EXAMINATION: General: This is a 81-year-old female. She is resting quietly in bed. She is in no acute distress. Skin: Warm and dry. HEENT: Normocephalic, atraumatic. Conjunctivae pale. She has KYRA. Mucous membranes are moist. Neck: Supple. Trachea midline. No JVD. Cardiovascular: Regular rate and rhythm. She has a positive S4. Lungs: Clear to auscultation anteriorly. Equal excursion on O2. Abdomen: Round, soft, nontender. Positive bowel sounds. Genitourinary: Breaux catheter remains in place with adequate urine out. Extremities: Have trace pretibial edema. No clubbing or cyanosis. Her upper extremities have no edema. AV fistula noted to the left forearm. Neurological : Patient is alert and oriented x3 with some improvement to her level of consciousness over the last 3 days. ASSESSMENT AND PLAN: 1. Chronic kidney disease stage 5. Patient had progressed to end-stage renal disease with uremic symptoms. She has been dialyzed last 2 days. We will plan for dialysis today. We will place her on a 2 K bath. She is to dialyze for 3.5 hours. We will attempt to pull an extra 1-2 L of ultrafiltration from her post dialysis weight yesterday. If this continues to go well we will have her rest tomorrow and plan for dialysis on Thursday. She has been set up for an outpatient appointment to start outpatient hemodialysis at the [facility]. Her family has all this information in a booklet. 2. Electrolytes. Patient continues with mild hyponatremia. Again, this is secondary to #1. Improvement on dialysis. 3. Acid-base balance. This remains stable. 4. Anemia. This remains low but stable. I would like to thank you for allowing us to follow with this patient. Dictated by MINDI Bañuelos for Ye Moore MD Patient seen, data reviewed, discussed with Geoffrey Rosenbaum on 02/25/17. I agree with the above assessment and plan of care. cc: MINDI Bañuelos MD Adnan A. Seljuki, MD [facility]
[2017-02-25] MEDS ORDERED: VANCOMYCIN 1 GM/NS 1 GM/250 ML IVPB IV ONE (17:00)
[2017-02-25] MEDS: EPOGEN SUBQ SCH (17:23)
[2017-02-25] MEDS: MAXIPIME 1 GM in NS 50 ML IV SCH (17:24)
[2017-02-25] MEDS: TYLENOL PO PRN (21:19)
[2017-02-26] MEDS: TYLENOL PO PRN (01:06)
[2017-02-26] MEDS: HEPARIN SUBQ SCH ×3 (04:38→21:16)
[2017-02-26 05:20] LABS: EOS# 0.11 X1000 (0.0-0.7); EOS% 0.5 % (0.0-10.0); HEMATOCRIT 24.6 % (37.0-47.0); HEMOGLOBIN 8.3 g/dL (12.0-16.0); IMM GRAN# 0.23 X1000 (0.0-0.04); LYMPH# 0.97 X1000 (1.2-3.4); LYMPH% 4.3 % (20.5-51.1); MANUAL DIFF NEEDED? NO; MCHC 33.7 g/dL (33-37); MONO# 2.87 X1000 (0.11-0.59); MONO% 12.7 % (1.7-9.3); MPV 10.6 FL (7.4-10.4); NEUT% 81.5 % (42.2-75.2); PLT 203 X1000 (130-400); RBC 2.86 XMIL (4.2-5.4)
[2017-02-26 05:33] LABS: ALBUMIN 2.6 g/dL (3.5-5.0); CALCIUM 7.4 mg/dL (8.8-10.2); POTASSIUM 3.9 mmol/L (3.5-5.1)
--- NOTE | 2017-02-26 07:22 | Diag Imaging Result Doc PS360 ---
EXAM: CHEST-1 VIEW HISTORY: pneumonia TECHNIQUE: Erect AP portable at 0605 COMMENT: There is cardiomegaly. There is some apparent increase in density in the retrocardiac region of the left lower lobe compared to 02/23/2017. Otherwise, considering differences in technique, there has been no appreciable change. IMPRESSION: Worsened atelectasis or pneumonia left lower lobe. Electronically signed by Isaac Bernard 02/26/2017 7:20 AM
[2017-02-26] MEDS: PROTONIX IV SCH (08:46)
[2017-02-26] MEDS: SODIUM CHLORIDE 0.9% INJ SCH (08:46)
[2017-02-26] MEDS: LEVAQUIN PO SCH (08:46)
[2017-02-26] MEDS: MERREM 500 MG in NS 50 ML IV SCH ×2 (08:46→21:14)
--- NOTE | 2017-02-26 09:14 | PROGRESS NOTE ---
DATE: 02/26/2017 PRESENT ILLNESS: The patient is being treated for a left lower lobe pneumonia. Unfortunately, she does not appear to be getting better. On x-ray today, Dr. Mancini and I thought that the infiltrate might even be worse. Also, her white count remains elevated. MEDICATIONS: Vancomycin and cefepime. PHYSICAL EXAM: Vital signs-T 98.8 P 98, RR 19, BP 95/46. General-Elderly female who looks chronically ill. CV-regular HR. Lungs-bilateral rhonchi. Abdomen-soft, nontender. Neuro-lethargic , weak. LABORATORY AND DIAGNOSTIC STUDIES: Her CBC showed a white count of 22,670, hemoglobin 8.3, and platelet count 203,000. Creatinine is 4.5. GFR is 11. Blood cultures are sterile. ASSESSMENT AND PLAN: Patient has pneumonia. It does not appear to be responding to the current antibiotics. My plan is to get immunoglobulin levels. Also, I am going to continue with vancomycin but switch the patient from cefepime to meropenem and add Levaquin also. COMORBIDITIES: Include myeloma with bone metastasis and COPD. cc: MD Yeimi Jean MD [facility]
[2017-02-26] MEDS: DUONEB (A & A) INH SCH ×3 (09:57→21:10)
--- NOTE | 2017-02-26 12:01 | Diag Imaging Result Doc PS360 ---
EXAM: CT THORAX W/O CONTRAST INDICATION: Persistent pneumonia TECHNIQUE: Dose reduction protocol was used. COMPARISON: 01/26/2012 FINDINGS: There is excessive respiratory motion artifact, which may limit imaging of fine details. There is a small left pleural effusion and left basilar atelectasis. There is probably mild infiltrate at both lung bases, worse on the left, but evaluation somewhat limited due to the motion artifact. There is probably at least a component of edema. There is severe cardiomegaly similar to the previous study. However, there is now a moderate-sized pericardial effusion. There are multiple lytic lesions throughout the spine and clavicles, and sternum as well as several ribs and the scapulae consistent with known multiple myeloma. However, it is essentially stable as compared to the previous study. Limited views of the upper abdomen reveal nephrolithiasis on the left. IMPRESSION: 1.Small left pleural effusion and left basilar atelectasis. 2.Mild infiltrates at both lung bases. 3.Marked cardiomegaly and moderate-sized pericardial effusion. 4.Multiple skeletal lytic lesions consistent with known multiple myeloma. Electronically signed by Gary Kendall 02/26/2017 11:59 AM
--- NOTE | 2017-02-26 18:32 | PROGRESS NOTE ---
DATE: 02/26/2017 SUBJECTIVE: Ms. Mcconnell is currently resting in bed. Head of the bed is elevated. Her son is assisting her to eat. She has no complaints at this time. She states it is too early. OBJECTIVE: Her most recent vital signs, temperature 98.8 degrees, blood pressure 95/46, heart rate 98, respirations 19. She is on 3 L nasal cannula. Last recorded saturation 98%. She has had 120 in. She has had 1.7 L out. From dialysis, she is 5.7 L in the negative fluid balance as of the last 5 days. LABORATORIES: Sodium 132, potassium 3.9, chloride 90, CO2 27, BUN 29, creatinine 4.5, glucose 134, anion gap, 15 calcium 7.4, phosphorus 1.4, albumin 2.6. White count 22.69 , hemoglobin 8.3, hematocrit 24.6, with a platelet count of 203,000. PHYSICAL EXAMINATION: General: This is a 81-year-old, female. She is resting quietly in bed. She appears chronically-ill. She is in no acute distress. Skin: Warm and dry. HEENT: Normocephalic, atraumatic. Conjunctivae pink. She has KYRA. Mucous membranes are dry. Neck: Supple. Trachea midline. No JVD. Cardiovascular: She is regular rate and rhythm. She has a soft systolic murmur. She does have a positive S4. Lungs: Clear to auscultation anteriorly. Equal excursion on O2. Abdomen: Round, soft, nontender. Positive bowel sounds. Genitourinary: Breaux catheter remains in place. Adequate urine out with assistance with dialysis. Extremities: Have trace pretibial edema. No clubbing or cyanosis. Upper extremities have no edema. AV fistula to the left forearm. This is positive with good thrill. Neurological: She is alert and oriented x3. ASSESSMENT AND PLAN: 1. Chronic kidney disease stage 5, with progression to end-stage renal disease. The patient's uremic symptoms are slowly improving. She has been dialyzed for 3 days straight. We will hold dialysis today and plan for dialysis in the a.m. At that point, if she remains in the hospital, we will plan for dialysis on Thursday. Otherwise, she is to go to her outpatient clinic. Prescription is given to her family. 2. Electrolytes. The patient continues with hyponatremia. This is contributory to #1. No indications for intervention. 3. Acid-base balance. This is stable. 4. Anemia. This remains low, but stable. 5. Add PT. rg I would to thank you for allowing us to follow with this patient. Dictated by MINDI Bañuelos for Ye Moore MD Patient seen, data reviewed, discussed with Geoffrey Rosenbaum on 02/26/17. I agree with the above assessment and plan of care. rg cc: MINDI Bañuelos MD Adnan A. Seljuki, MD [facility]
--- NOTE | 2017-02-26 22:14 | Diag Imaging Result Doc PS360 ---
EXAM: CT ABD/PELVIS ORAL CONTR ONLY HISTORY: fevers and leukocytosis TECHNIQUE: CT abdomen and pelvis with oral contrast only. Low-dose protocol. COMPARISON: None. FINDINGS: No change in the appearance of the lower chest including the heart compared to the chest CT performed earlier today. The gallbladder has been removed. Normal noncontrasted liver, spleen, and pancreas. Normal adrenal glands. There are multiple cortical renal calcifications in addition to renal stones. These are more numerous on the left. No hydronephrosis. Prominent atherosclerosis. No aneurysmal dilatation to the aorta. No bowel obstruction. No inflammation about the cecum. No abscess. A Breaux catheter has the urinary bladder decompressed. No uterine mass. Neither ovary is enlarged. Questionable anal and rectal wall thickening. There are many lucent areas throughout the skeleton. The bones are markedly osteopenic and there are scattered degenerative spine changes. IMPRESSION: 1.There are many scattered lytic lesions in the skeleton consistent with the patient's clinical diagnosis of multiple myeloma. The bones are also osteopenic with degenerative spine changes. 2.Cholecystectomy 3.Prominent atherosclerosis 4.Renal stones, but no hydronephrosis 5.Possible rectal wall thickening with prominence to the anus. Clinical evaluation needed. Electronically signed by Primo Mathew 02/26/2017 10:11 PM
--- NOTE | 2017-02-26 23:26 | CONSULTATION ---
DATE OF CONSULTATION: 02/26/2017 IMPRESSION: 1. Pericardial effusion reported on chest CT scan. No signs of tamponade. Suspect very likely this is related to uremia. 2. Chronic kidney disease, stage 5 which has progressed to end-stage renal disease, recently. Dialysis has been initiated. 3. Pneumonia. 4. 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 5. Chronic obstructive pulmonary disease. 6. Hypertension. RECOMMENDATIONS: 1. Echocardiography. 2. Suspect pericardial effusion will likely improve with further dialysis without further intervention. HISTORY: This 81-year-old, female with past history of multiple myeloma with bone metastasis, advanced kidney disease, COPD, hypertension and gout was admitted several days ago with progressive weakness in her legs. She was found to be in end-stage renal disease and to have hypercalcemia as well as elevated white blood cell count. She is suspected of having pneumonia and is being treated with parenteral antibiotics. Hemodialysis has been initiated. As part of workup, she had chest CT scan. Moderate pericardial effusion was reported. PAST MEDICAL HISTORY: 1. Multiple myeloma with bony metastasis. 2. Chronic obstructive pulmonary disease. 3. Chronic kidney disease stage 5, progressing to end-stage renal disease recently. 4. Hypertension. PAST SURGICAL HISTORY: Unspecified knee surgery, cholecystectomy, and right Port-A-Cath placement. She also has a fistula placed in her left forearm. ALLERGIES: She has no known drug allergies. MEDICATIONS: As listed. SOCIAL HISTORY: She lives at home with her daughter. She has a remote history of smoking. She does not use alcohol. FAMILY HISTORY: Positive for coronary disease. REVIEW OF SYSTEMS: Pulmonary: Negative for dyspnea or chest pain. Gastrointestinal: Negative. Constitutional: Noteworthy for some malaise, but otherwise negative. Remainder of review of systems negative/noncontributory beyond history of present illness with 14 total systems reviewed. PHYSICAL EXAMINATION: General: An obese elderly female in no distress. Vital Signs: Blood pressure 132/47, heart rate 52 and regular. HEENT: Extraocular movements appear intact. Mucous membranes are moist. Neck: Supple without discernible jugular distention. Chest: Clear to auscultation bilaterally. Cardiac: Reveals a regular rate and rhythm without appreciable murmur, rub, or gallop. Abdomen: Soft, nontender. Bowel sounds are normal. Extremities: Without edema. Neurologic: Reveals her to be alert, fully oriented. Speech is fluent. She moves all 4 extremities equally well. Skin: Warm and dry. Psychiatric: Reveals her mood to be appropriate. DIAGNOSTIC DATA: EKG obtained on admission demonstrates sinus rhythm with premature atrial complexes, left axis deviation and delayed precordial R-wave progression. cc: MD Yeimi Sandoval MD
[2017-02-27] MEDS: TYLENOL PO PRN ×2 (01:33→05:14)
[2017-02-27] MEDS: DUONEB (A & A) INH SCH ×4 (03:10→21:35)
[2017-02-27] MEDS: HEPARIN SUBQ SCH ×3 (04:09→20:43)
[2017-02-27 05:21] LABS: EOS# 0.11 X1000 (0.0-0.7); EOS% 0.5 % (0.0-10.0); HEMOGLOBIN 7.5 g/dL (12.0-16.0); IMM GRAN# 0.24 X1000 (0.0-0.04); IMM GRAN% 1.1 % (0.0-0.5); LYMPH# 0.93 X1000 (1.2-3.4); LYMPH% 4.3 % (20.5-51.1); MANUAL DIFF NEEDED? YES; MCHC 34.1 g/dL (33-37); MCV 84.9 FL (81-99); MONO# 2.67 X1000 (0.11-0.59); MONO% 12.4 % (1.7-9.3); MPV 10.7 FL (7.4-10.4); NEUT% 81.7 % (42.2-75.2); PLT 205 X1000 (130-400); RBC 2.59 XMIL (4.2-5.4)
[2017-02-27 05:32] LABS: EOS 2 % (1-10); LARGE PLATELETS 1+; LYMPHS 3 % (21-51); MONO 5 % (1-9)
[2017-02-27 05:39] LABS: ALBUMIN 2.4 g/dL (3.5-5.0); CALCIUM 7.2 mg/dL (8.8-10.2)
[2017-02-27] MEDS ORDERED: HEPARIN ONE ×2 (06:43→11:13)
[2017-02-27] MEDS ORDERED: NS 2,000 ML ONE ×2 (06:43→11:13)
[2017-02-27] MEDS ORDERED: HEPARIN IV PRN (07:42)
[2017-02-27] MEDS ORDERED: TIGHT: 0.2 ML/HR MISC PRN (07:42)
[2017-02-27] MEDS ORDERED: NS 2,000 ML MISC PRN (07:42)
--- NOTE | 2017-02-27 07:59 | CONSULTATION ---
DATE OF CONSULTATION: 02/26/2017 REQUESTING PHYSICIAN: Dr. Mancini. REASON FOR CONSULTATION: Pneumonia. HISTORY OF PRESENT ILLNESS: Ms. Mcconnell is a 81-year-old black female with COPD (nonsmoker x1 year), chronic renal disease, with recent initiation of hemodialysis, multiple myeloma with lytic bone disease, who presented to the emergency room with fevers and hypercalcemia. The patient was evaluated by Dr. Littlejohn on 02/23/2017. She is being treated for a left lower lobe pneumonia. Despite treatment, she continues to have leukocytosis and intermittent fevers. Pulmonary consultation was requested. PAST MEDICAL HISTORY/PROBLEM LIST: 1. Multiple myeloma with lytic bone disease. 2. COPD. 3. Gout. 4. Hypertension. 5. Chronic renal insufficiency. 6. Status post knee surgery. 7. Status post cholecystectomy. 8. History of Port-A-Cath placement. SOCIAL HISTORY: Nonsmoker x1 year. No current alcohol use listed. FAMILY HISTORY: Positive for heart disease. REVIEW OF SYSTEMS: Notable for mild shortness of breath. She denies headaches, sinus drainage, chest pain, sputum production, hemoptysis, constipation, changes in bowel or bladder habits. PHYSICAL EXAMINATION: General: Reveals an obese, white female. Resting in a chair. She appears uncomfortable but has difficulty stating why. Vital signs: Blood pressure 132/47, heart rate 52, respiration rate 15, oxygen saturation 100% on 4 L. Temperature 99.0 degrees with maximum temperature very early this morning 101.4 degrees. HEENT: Pupils are equal and reactive. Oropharynx is clear. Neck: Supple. Chest: Reveals good air entry bilaterally. There is no wheezing or rhonchi. She has faint crackles in the lung bases. Cardiac Exam: Regular rate. Normal S1, normal S2. Abdomen: Soft and without hepatosplenomegaly. Extremities: Reveal trace edema. LABORATORIES: CT scan of the thorax was performed. She has minimal infiltrate at the left base. She has a small pericardial effusion which is predominantly posterior in character. White blood count 22.6 1000, hemoglobin 8.3, platelet count 203,000. Chemistry: 132, potassium 3.9, chloride 90, bicarbonate 27, BUN 29, creatinine 4.5. Calcium is normalized to 7.4, phosphorus is now low at 1.4. IMPRESSION: A 81-year-old with multiple myeloma with tiny infiltrate/pneumonia at the left base. This might actually be atelectasis and it is not completely clear this represents her focus of fever and leukocytosis. She has no rhonchi on examination. Her course of treatment should have been adequate for a small pneumonia. She does have a small posterior pericardial effusion and we will ask Cardiology to evaluate this process. I would recommend continuing to look for other causes of leukocytosis and fever. I will perform a CT scan of the abdomen and pelvis to ensure she does not have an occult abscess in the abdomen to explain her ongoing leukocytosis and fevers. RECOMMENDATIONS: 1. Continue antibiotics for tiny left-sided pneumonia as prescribed by Dr. Littlejohn. 2. Incentive spirometry for bronchial hygiene. 3. CT scan of the abdomen and pelvis for reasons outlined above. 4. Additional recommendations pending hospital course. cc: MD Yeimi Burrows MD
[2017-02-27] MEDS: PROTONIX IV SCH (08:55)
[2017-02-27] MEDS: LEVAQUIN PO SCH (08:55)
[2017-02-27] MEDS: SODIUM CHLORIDE 0.9% INJ SCH (08:55)
[2017-02-27] MEDS: MERREM 500 MG in NS 50 ML IV SCH ×2 (08:56→20:41)
[2017-02-27] MEDS: EPOGEN SUBQ SCH (11:05)
--- NOTE | 2017-02-27 13:52 | PROGRESS NOTE ---
DATE: 02/27/2017 PRESENT ILLNESS: The patient is being treated with antibiotics for a bibasilar pneumonia. She was found to have yesterday a pericardial effusion which does not seem to be infected. The patient's white count actually decreased a small amount after her change in antibiotics yesterday. MEDICATIONS: The patient now is getting a combination of meropenem, Levaquin and vancomycin. PHYSICAL EXAMINATION: Vital Signs: Temperature is 98.5, pulse is 101, respirations 18, blood pressure 110/95. General: This is an ill-appearing, elderly female. She is in no acute distress. Lungs: Clear to auscultation. Cardiovascular: Heart rate is irregular. Abdomen: Soft and not tender. Thorax: The patient has a Port-A-Cath in place. The site is not swollen or tender. Extremities: She has an AV fistula in her arm and the site is not swollen or tender. LABORATORY AND X-RAY: The patient's creatinine is 5.6. The GFR is 9. CBC shows a white count of 21,550, hemoglobin 7.5 and platelet count of 205,000. The blood cultures and urine culture are sterile. CT scan of the abdomen and pelvis shows many bony lesions secondary to multiple myeloma. Also it showed renal calculi and possible rectal wall thickening. CT scan of the chest showed bibasilar infiltrates and a pericardial effusion. ASSESSMENT AND PLAN: 1. Patient has pneumonia. I think that the pneumonia is causing her leukocytosis. Hopefully with the switch in antibiotics, hopefully the white count will come down and the patient's pneumonia will clear. 2. Comorbidity: She is elderly. She also has multiple myeloma with extensive bony lesions. cc: MD Yeimi Jean MD
[2017-02-27] MEDS ORDERED: VANCOMYCIN 1 GM/NS 1 GM/250 ML IVPB IV ONE (17:00)
[2017-02-28] MEDS: DUONEB (A & A) INH SCH ×4 (03:12→21:41)
[2017-02-28] MEDS: HEPARIN SUBQ SCH ×3 (04:14→20:19)
[2017-02-28] MEDS: LEVAQUIN PO SCH (08:26)
[2017-02-28] MEDS: PROTONIX IV SCH (08:26)
[2017-02-28] MEDS: MERREM 500 MG in NS 50 ML IV SCH ×2 (08:27→20:15)
--- NOTE | 2017-02-28 09:19 | PROGRESS NOTE ---
DATE: 02/27/2017 SUBJECTIVE: The patient continues without chest discomfort or dyspnea. OBJECTIVE: Vital Signs: Blood pressure 97/46, heart rate 100 and regular, oxygen saturation 99% on oxygen per nasal cannula. neck: There is no significant jugular venous distention. Chest: Clear to auscultation. Cardiac: Exam reveals a regular rate and rhythm, without appreciable murmur or gallop. Extremities: Without edema. LABORATORY DATA: Includes white blood cell count 21.55, hematocrit 22. Sodium 124, potassium 4.0, BUN 41, creatinine 5.6. Echocardiography demonstrates moderate pericardial effusion, localized posterior to left ventricle. There is no evidence of tamponade. IMPRESSION: 1. Moderate posterior pericardial effusion, without tamponade. I suspect this is very well likely related to end-stage renal disease/uremia. 2. Chronic kidney disease stage 5, which has progressed to end-stage renal disease. Dialysis has been the initiated. 3. Pneumonia. 4. 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 5. Chronic obstructive pulmonary disease. 6. Hypertension. RECOMMENDATIONS: 1. No further intervention from cardiology standpoint. 2. Suspect pericardial effusion will likely improve with further dialysis. cc: MD Yeimi Sandoval MD
--- NOTE | 2017-02-28 12:34 | ECHO REPORT ---
ORDER DATE: 02/26/2017 MEASUREMENTS: Left ventricular end-diastolic diameter 4.5 and systolic diameter 3.3, septal thickness 1.3, posterior wall thickness 1.3. SUMMARY: 1. Fair quality study. 2. Minimal aortic valve sclerosis demonstrated with adequate aortic valve opening evident. Moderate to severe mitral annular calcification is demonstrated. Tricuspid and pulmonic valves are without evidence of structural abnormality with mild tricuspid regurgitation and mild pulmonic insufficiency. Estimated systolic PA pressure by Doppler is 55 mmHg suggesting moderate pulmonary hypertension. Aortic root is normal size. 3. Normal left ventricular chamber size with mild concentric left hypertrophy is suggested. Estimated left ejection fraction appears to be at least 60%. No regional wall motion abnormalities evident. Left atrium is mildly enlarged. Right atrium and right ventricle are normal in size with grossly preserved right ventricular systolic function. 4. Moderate pericardial effusion demonstrated posteriorly. cc: MD Anisa Sandoval PA Adnan A. Seljuki, MD
[2017-02-28 13:07] LABS: BASO% 0.1 % (0.0-0.8); EOS# 0.07 X1000 (0.0-0.7); EOS% 0.3 % (0.0-10.0); HEMATOCRIT 20.7 % (37.0-47.0); LYMPH# 0.52 X1000 (1.2-3.4); LYMPH% 2.3 % (20.5-51.1); MANUAL DIFF NEEDED? YES; MCH 29.7 PG (27-31); MCHC 33.8 g/dL (33-37); MCV 87.7 FL (81-99); MONO# 3.06 X1000 (0.11-0.59); MONO% 13.8 % (1.7-9.3); MPV 10.5 FL (7.4-10.4); NEUT% 83.5 % (42.2-75.2); PLT 206 X1000 (130-400); RBC 2.36 XMIL (4.2-5.4)
[2017-02-28 13:34] LABS: BANDS 4 % (0-1); EOS 2 % (1-10); LYMPHS 4 % (21-51); MONO 10 % (1-9)
[2017-02-28 13:36] LABS: CALCIUM 6.8 mg/dL (8.8-10.2); POTASSIUM 4.4 mmol/L (3.5-5.1)
[2017-02-28] MEDS: SOLU-MEDROL IV SCH ×3 (15:19→22:26)
--- NOTE | 2017-02-28 18:14 | PROGRESS NOTE ---
DATE: 02/27/2017 TIME SEEN: 11 a.m. SUBJECTIVE: Patient resting in bed. She is agitated and picking at her sheets and wiring. She denies any pain or shortness of breath. OBJECTIVE: Vital Signs: Temperature 97.7 degrees, pulse 87, respiratory 25, blood pressure 120/60, intake 1.1 L, output 150 mL. PHYSICAL EXAMINATION: General: Elderly female resting in bed. She is chronically ill and not agitated but restless. HEENT: Normocephalic, atraumatic. KYRA. Conjunctivae pink. Oral mucosa moist. Neck: Supple. Trachea midline. No JVD. Cardiovascular: Regular rate and rhythm with a systolic murmur. Pulmonary: Equal excursion, she is clear bilaterally. Abdomen: Soft, positive bowel sounds. : She has Breaux catheter. Extremities: No clubbing, cyanosis. She has an AV fistula left forearm. Neuro: She is awake and alert. LAB DATA: WBC of 21.5, hemoglobin 7.5, sodium 124, potassium 4.0, CO2 23, creatinine 5.6, albumin 2.4. ASSESSMENT AND PLAN: 1. Chronic kidney disease stage 5 with progression to end-stage renal disease. She has been a new start dialysis this week. We are transitioning her to a Thursday, Thursday, Thursday schedule. We will plan to dialyze her on a 2 K bath/UF as tolerated/4 hour treatment today. If she remains in the hospital will plan to dialyze her again on Thursday. Otherwise she has an outpatient plan at the [facility]. 2. Electrolytes, acid-base balance, anemia. These are acceptable. Treat with dialysis today. 3. Fluid volume. Manage with dialysis. 4. Hypertension controlled. Dictated by MINDI Mercer for Ye Moore MD cc: MD Yeimi Anaya MD
[2017-02-28] MEDS: TYLENOL PO PRN (21:00)
--- NOTE | 2017-02-28 22:37 | PROGRESS NOTE ---
DATE: 02/28/2017 SUBJECTIVE: Patient currently resting in bed. She is awake and alert but again maybe perhaps a little bit of confusion. OBJECTIVE: Vital: Temperature 99.8 degrees, pulse 99, respiratory rate 19, blood pressure 126/69, intake 930 mL, output 2.8 L. General: Elderly female resting in bed chronically ill- appearing. No acute distress. HEENT: Normocephalic, atraumatic. Oral mucosa is moist. Neck: Supple. Trachea midline. There is no JVD in a reclined position. Cardiovascular: Regular rate and rhythm with a systolic murmur. Pulmonary: She has equal excursion. She is clear bilaterally. Abdomen: Soft with positive bowel sounds. : Not inspected. Extremities: No clubbing, cyanosis or edema. AV fistula left upper arm. Integumentary: Skin is warm and dry otherwise. LAB DATA: No labs today. ASSESSMENT AND PLAN: 1. Chronic kidney disease stage 5 with progression end-stage disease. We dialyzed now to a 3 day a week schedule. I will check labs over the weekend to determine her dialysis bath for Thursday. 2. Electrolytes, acid-base balance, anemia, see above. Dictated by MINDI Mercer for Ye Moore MD cc: MD Yeimi Anaya MD
[2017-03-01] MEDS: DUONEB (A & A) INH SCH ×4 (03:24→21:43)
[2017-03-01] MEDS: SOLU-MEDROL IV SCH ×4 (04:54→21:41)
[2017-03-01] MEDS: HEPARIN SUBQ SCH ×4 (04:54→20:00)
[2017-03-01 05:52] LABS: BASO% 0.1 % (0.0-0.8); EOS# 0.01 X1000 (0.0-0.7); HEMOGLOBIN 7.3 g/dL (12.0-16.0); IMM GRAN# 0.43 X1000 (0.0-0.04); IMM GRAN% 1.8 % (0.0-0.5); LYMPH# 0.42 X1000 (1.2-3.4); LYMPH% 1.8 % (20.5-51.1); MANUAL DIFF NEEDED? YES; MCHC 34.8 g/dL (33-37); MCV 83.3 FL (81-99); MONO# 0.76 X1000 (0.11-0.59); MONO% 3.2 % (1.7-9.3); NEUT% 93.1 % (42.2-75.2); PLT 248 X1000 (130-400); RBC 2.52 XMIL (4.2-5.4)
[2017-03-01 06:01] LABS: ALBUMIN 2.6 g/dL (3.5-5.0); POTASSIUM 4.6 mmol/L (3.5-5.1)
[2017-03-01 06:22] LABS: CALCIUM 6.5 mg/dL (8.8-10.2)
[2017-03-01 06:28] LABS: LYMPHS 2 % (21-51); MONO 2 % (1-9)
[2017-03-01] MEDS: LEVAQUIN PO SCH (08:38)
[2017-03-01] MEDS: PROTONIX IV SCH (08:38)
[2017-03-01] MEDS: MERREM 500 MG in NS 50 ML IV SCH ×2 (08:38→19:54)
--- NOTE | 2017-03-01 10:56 | Diag Imaging Result Doc PS360 ---
EXAM: CHEST-PORTABLE HISTORY: wheezing TECHNIQUE: Portable upright AP COMPARISON: 02/26/2017 FINDINGS: No change in the right sided portacatheter. The heart remains enlarged. There is vascular distention as well as a left-sided pleural effusion. There is atelectasis in the left base and there could be an underlying infiltrate. IMPRESSION: No interval improvement Electronically signed by Primo Mathew 03/01/2017 10:54 AM
[2017-03-01] MEDS ORDERED: MORPHINE IV PRN (11:27)
[2017-03-01] MEDS: ATIVAN IV PRN ×3 (11:52→22:19)
[2017-03-01] MEDS ORDERED: CALMOSEPTINE OINTMENT TOP PRN (15:01)
--- NOTE | 2017-03-01 18:44 | PROGRESS NOTE ---
DATE: 03/01/2017 SUBJECTIVE: Patient is sitting up in bed. She wants to know what day it is. OBJECTIVE: Vital Signs: Temperature 97.9 degrees, pulse 84, respiratory rate 20, blood pressure 107/51, intake 640 mL, output 100 mL. General: This is an elderly female, resting in bed. She is chronically ill-appearing, but is in no acute distress. HEENT: Normocephalic, atraumatic. Oral mucosa is moist. Tongue is midline. Neck: Supple. There is no JVD in the sitting position. Cardiovascular: Regular rate and rhythm with systolic murmur. Pulmonary: She is clear bilaterally. She has no increased work of breathing with equal excursion. Abdomen: Soft. She has positive bowel sounds. : Not inspected. Extremities: AV fistula noted in left upper extremity. Trace lower extremity edema. She has question of asterixis movements to the upper extremities. Skin: Warm and dry. LABORATORY DATA: WBC of 23.7, hemoglobin 7.3. Sodium 124, potassium 4.6, CO2 21, BUN 49, creatinine 6.7, calcium 6.5. ASSESSMENT AND PLAN: 1. Chronic kidney disease stage 5 with progression to end-stage renal disease. We are dialyzing on a 3 day a week schedule. We will check her labs in the morning to determine her dialysis bath at that time. We did dialyze her on a regular dialysis bath at her last treatment. 2. Hypocalcemia. The patient has multiple myeloma with metastatic disease to the bones. She came in with hypercalcemia. She was treated with pamidronate. Her calcium has continued to drop. She is followed by Dr. Harley as an outpatient. Tomorrow we will check labs and if need be adjust her calcium bath on dialysate. 3. Electrolytes, acid-base balance anemia. She has had some progressive anemia. She is on Epogen. Dictated by MINDI Mercer for Ye Moore MD cc: MD Yeimi Anaya MD
[2017-03-02] MEDS: DUONEB (A & A) INH SCH ×4 (03:28→21:45)
[2017-03-02] MEDS: HEPARIN SUBQ SCH ×3 (05:09→22:24)
[2017-03-02] MEDS: SOLU-MEDROL IV SCH ×3 (05:09→22:22)
[2017-03-02 05:47] LABS: BASO% 0.1 % (0.0-0.8); HEMATOCRIT 19.6 % (37.0-47.0); HEMOGLOBIN 6.8 g/dL (12.0-16.0); IMM GRAN% 2.9 % (0.0-0.5); LYMPH% 2.4 % (20.5-51.1); MANUAL DIFF NEEDED? YES; MCH 28.8 PG (27-31); MCHC 34.7 g/dL (33-37); MCV 83.1 FL (81-99); MONO# 1.34 X1000 (0.11-0.59); MONO% 6.5 % (1.7-9.3); NEUT% 88.1 % (42.2-75.2); PLT 259 X1000 (130-400); RBC 2.36 XMIL (4.2-5.4)
[2017-03-02 06:05] LABS: ALBUMIN 2.6 g/dL (3.5-5.0); POTASSIUM 4.6 mmol/L (3.5-5.1)
[2017-03-02 06:06] LABS: CALCIUM 6.4 mg/dL (8.8-10.2)
[2017-03-02 07:06] LABS: BANDS 4 % (0-1); MONO 6 % (1-9)
[2017-03-02 07:07] LABS: HYPOCHROM 2+
--- NOTE | 2017-03-02 08:05 | PROGRESS NOTE ---
DATE: 03/02/2017 PRESENT ILLNESS: The patient is being treated with antibiotics for pneumonia. MEDICATIONS: This is the 4th day of treatment with the combination of Levaquin, meropenem, and vancomycin. PHYSICAL EXAMINATION: Vital Signs: Temperature is 97.9 degrees, pulse 86, respirations 18, blood pressure 122/72. General: This patient is audibly wheezing. She appears to be having some difficulty breathing. Cardiovascular: Heart rate is regular. Lungs: The patient has expiratory wheezes. Abdomen: Soft and nontender. Chest: The patient has a right-sided Port-A-Cath in place. The site is not tender or swollen. Extremities: The patient has an AV fistula for dialysis. The fistula is working well. There is no marked swelling or tenderness. LAB AND X-RAY: Chest x-ray shows left pleural effusion with possible left lower lobe infiltrate. The patient's immunoglobulins show an IgG that is normal. The IgA is low at 28. Legionella urinary antigen is negative. CBC shows a white count of 20,510, hemoglobin 6.8, and platelet count 259,000. Creatinine is 7.4. GFR is 6. ASSESSMENT AND PLAN: The patient has pneumonia. I plan to continue with her current antibiotics. The patient's comorbidities include she is elderly. She has multiple myeloma with extensive bony lesions. The patient's IgA level is low but unfortunately we do not have a replacement product to increase her IgA level. A low IgA level predisposes the patient to get infection and also make it more difficult for the patient to clear the infection. cc: MD Yeimi Jean MD
[2017-03-02] MEDS: PROTONIX IV SCH (08:19)
[2017-03-02] MEDS: MERREM 500 MG in NS 50 ML IV SCH ×2 (08:19→22:16)
[2017-03-02] MEDS: LEVAQUIN PO SCH (08:19)
[2017-03-02] MEDS ORDERED: HEPARIN IV PRN (08:33)
[2017-03-02] MEDS ORDERED: NS 2,000 ML MISC PRN (08:33)
[2017-03-02] MEDS ORDERED: TIGHT: 0.2 ML/HR MISC PRN (08:33)
--- NOTE | 2017-03-02 15:01 | Diag Imaging Result Doc PS360 ---
EXAM: CHEST-2 VIEWS HISTORY: dyspnea, new onset wheezing, decreased O2 sat TECHNIQUE: AP and lateral chest COMMENT: There is cardiomegaly. There is elevation of the left hemidiaphragm and opacity in the left lower lobe consistent with atelectasis or pneumonia. This is also apparently present on 03/01/2017 and has improved slightly. IMPRESSION: Atelectasis and/or pneumonia left lower lobe slightly improved since previous study. Advise follow-up until clear. Electronically signed by Isaac Bernard 03/02/2017 2:58 PM
[2017-03-02] MEDS: EPOGEN SUBQ SCH (15:14)
--- NOTE | 2017-03-02 15:17 | PROGRESS NOTE ---
DATE: 03/02/2017 SUBJECTIVE: Patient undergoing hemodialysis. She is in mild respiratory distress from breathing issues this morning. She has significant wheeze. OBJECTIVE: Vital Signs: Temperature 97.9 degrees, pulse 70, respiratory rate 22, blood pressure 116/69. Intake 450 mL. Output not measured. General: This is an elderly female, resting in bed. She is awake and alert. She is chronically ill-appearing. HEENT: Normocephalic, atraumatic. Oral mucosa moist. Neck: Supple. There is trace JVD. Cardiovascular: Regular rate and rhythm with a murmur. Pulmonary: She has audible wheeze at the bedside. She has significant inspiratory wheeze noted bilaterally and worse posteriorly. She is on O2 supplementation via nasal cannula. Abdomen: Soft, with positive bowel sounds. : Not inspected. Extremities: AV fistula in the left upper extremity. She has trace pretibial edema. Integumentary: Skin is warm and dry. Lab Data: WBC of 20.5, hemoglobin 6.8. Sodium 123, potassium 4.6, CO2 21, BUN 70, creatinine 7.4. Assessment and Plan: 1) CKD 5 with progression to ESRD. Will dialyize today on 2K/UF 2-3L/4 hour treatment. 2) Anemia. Type and Cross and transfuse 2 units PRBC while on dilaysis today. 3) Hypocalcemia. Normal calcium bath today. She received pamidronate initially on admission. 4) Wheeze and decreased respiratory status. Will order breathing TX and chest XR. UF 2-3L if tolerated to help. 5) Hyponatremia. Is on a normal sodium bath. 6) Blood pressure. Controlled. Dictated by MINDI Mercer for Ye Moore MD Patient seen, data reviewed, discussed with Qing Schneider on 03/02/17. I agree with the above assessment and plan of care. cc: MD Yeimi Anaya MD MTDD
[2017-03-02] MEDS ORDERED: VANCOMYCIN 1 GM/NS 1 GM/250 ML IVPB IV ONE (17:00)
[2017-03-03] MEDS: DUONEB (A & A) INH SCH ×4 (03:45→22:40)
[2017-03-03] MEDS: HEPARIN SUBQ SCH ×3 (05:35→21:32)
[2017-03-03] MEDS: SOLU-MEDROL IV SCH ×3 (05:35→21:32)
[2017-03-03 06:25] LABS: MANUAL DIFF NEEDED? NO
[2017-03-03 06:39] LABS: BASO% 0.1 % (0.0-0.8); EOS# 0.01 X1000 (0.0-0.7); EOS% 0.1 % (0.0-10.0); HEMATOCRIT 21.1 % (37.0-47.0); HEMOGLOBIN 7.1 g/dL (12.0-16.0); IMM GRAN# 0.66 X1000 (0.0-0.04); IMM GRAN% 3.6 % (0.0-0.5); LYMPH% 4.3 % (20.5-51.1); MCH 28.6 PG (27-31); MCHC 33.6 g/dL (33-37); MCV 85.1 FL (81-99); MONO# 1.38 X1000 (0.11-0.59); MONO% 7.5 % (1.7-9.3); MPV 9.8 FL (7.4-10.4); NEUT% 84.4 % (42.2-75.2); PLT 266 X1000 (130-400); RBC 2.48 XMIL (4.2-5.4)
[2017-03-03 07:13] LABS: ALBUMIN 2.8 g/dL (3.5-5.0); CALCIUM 6.7 mg/dL (8.8-10.2)
[2017-03-03] MEDS: ATIVAN IV PRN ×2 (08:00→21:30)
--- NOTE | 2017-03-03 09:20 | PROGRESS NOTE ---
DATE: 03/03/2017 SUBJECTIVE: Patient resting in bed asleep. She does not really arouse with gentle tactile stimuli. Family states that she had not slept well overnight. OBJECTIVE: Vital Signs: Temperature 97.8 degrees, pulse 96, respiratory rate 28, blood pressure 131/60. Intake 50 mL. Output 4 L. General: This is an elderly chronically ill-appearing female, resting in bed. She appears in no overt distress, but does have obvious increased work of breathing. HEENT: Normocephalic, atraumatic. Neck: Supple. Unable to discern JVD in current position. Cardiovascular: Regular rate and rhythm with a murmur. Pulmonary: She has some scattered wheezes bilaterally. No overt rales. She does have accessory muscle use, and does appear to be working to breathe. Abdomen: Obese, but soft, positive bowel sounds. : Not inspected. Extremities: AV fistula left upper extremity. Trace pretibial edema. Integumentary: Skin is warm and dry. LAB DATA: WBC , hemoglobin 7.1. Sodium 133, potassium 4.0, CO2 25, creatinine 6.1, calcium 6.7, albumin 2.8. ASSESSMENT/PLAN: 1. Chronic kidney disease, stage 5 with progression to end-stage renal disease. She is now on a Thursday, Thursday, Thursday schedule. We did remove 4 L off yesterday. 2. Anemia. She did have packed red blood cells on dialysis yesterday. We are going to go ahead and set up 2 units in anticipation that she will need a transfusion again tomorrow. The patient is already followed by Hematology/Oncology as an outpatient. She is followed by Dr. Harley as an outpatient, and he is already on the case. 3. Hypocalcemia, slightly improved after a treatment yesterday. Again, followed by Hematology/Oncology secondary to her multiple myeloma with metastasis to the bones. 4. Decreased respiratory status. Her chest x-ray yesterday showed atelectasis versus pneumonia to the left lower lobe with followup indicated. We are repeating her chest x -ray this morning. Depending on findings, patient may need some additional ultrafiltration for fluid management to assist with respiratory effort. 5. Hyponatremia, improved. Continue normal sodium bath during dialysis. 6. Hypertension, controlled. 7. Fluid volume. See above for plan. 8. Pneumonia. She is on current antibiotics, followed by Dr. Littlejohn. Dictated by MINDI Mercer for Ye Moore MD Patient seen, data reviewed, discussed with Qing Schneider on 03/03/17. I agree with the above assessment and plan of care. cc: MD Yeimi Anaya MD [facility]
--- NOTE | 2017-03-03 09:33 | Diag Imaging Result Doc PS360 ---
CHEST-2 VIEWS - 03/03/2017 INDICATION: dyspnea, atelectasis vs PNA TECHNIQUE: COMPARISON: 03/02/2017 FINDINGS: Stable right chest port. Stable severe cardiomegaly. Stable pulmonary vascular congestion. Stable left lower lobe effusion/collapse. The right lung remains grossly clear. IMPRESSION: No change from prior. Electronically signed by Amrik Romano 03/03/2017 9:31 AM
[2017-03-03] MEDS: MERREM 500 MG in NS 50 ML IV SCH ×2 (09:59→21:31)
[2017-03-03] MEDS: PROTONIX IV SCH (09:59)
[2017-03-03] MEDS: SODIUM CHLORIDE 0.9% INJ SCH (09:59)
[2017-03-03] MEDS: LEVAQUIN PO SCH (10:00)
--- NOTE | 2017-03-03 16:46 | PROGRESS NOTE ---
DATE: 03/04/2017 PRESENT ILLNESS: The patient is receiving antibiotics for pneumonia. MEDICATIONS: The patient has been on Levaquin, meropenem and vancomycin now for 5 days. PHYSICAL EXAMINATION: Vital Signs: Temperature is 97.6 degrees, pulse 80, respirations 16, blood pressure 126/57. General: This is an obese, elderly female who looks ill. Lungs: There were audible expiratory wheezes. Cardiovascular: Regular heart rate. Abdomen: Soft, without masses or tenderness. Extremities: In the left upper arm there is an AV fistula, which is working well. skin: On the chest, in the right side, there is a Port-A-Cath present which is not swollen or erythematous. LABORATORY AND X-RAY: Chest x-ray shows cardiomegaly, pulmonary venous congestion and left lower lobe collapse. CBC shows a white count of 18,460, hemoglobin 7.1 and platelet count 266,000. Creatinine is 6.1. GFR is 8. ASSESSMENT AND PLAN: 1. The patient has pneumonia. My plan is to continue her current antibiotics. 2. Her comorbidities include multiple myeloma, low IgA level and being elderly. cc: MD Yeimi Jean MD
[2017-03-04] MEDS: ATIVAN IV PRN (02:35)
[2017-03-04] MEDS: DUONEB (A & A) INH SCH ×3 (03:46→21:27)
[2017-03-04] MEDS: SOLU-MEDROL IV SCH ×3 (04:36→20:50)
[2017-03-04] MEDS: HEPARIN SUBQ SCH ×3 (04:36→20:50)
[2017-03-04 06:33] LABS: MANUAL DIFF NEEDED? NO
[2017-03-04 06:44] LABS: BASO% 0.2 % (0.0-0.8); EOS# 0.01 X1000 (0.0-0.7); EOS% 0.1 % (0.0-10.0); HEMATOCRIT 21.3 % (37.0-47.0); HEMOGLOBIN 7.1 g/dL (12.0-16.0); IMM GRAN# 0.79 X1000 (0.0-0.04); LYMPH# 0.69 X1000 (1.2-3.4); LYMPH% 3.5 % (20.5-51.1); MCH 28.7 PG (27-31); MCHC 33.3 g/dL (33-37); MCV 86.2 FL (81-99); MONO# 1.74 X1000 (0.11-0.59); MONO% 8.8 % (1.7-9.3); NEUT% 83.4 % (42.2-75.2); PLT 262 X1000 (130-400); RBC 2.47 XMIL (4.2-5.4)
[2017-03-04 07:15] LABS: ALBUMIN 2.9 g/dL (3.5-5.0); POTASSIUM 4.3 mmol/L (3.5-5.1); TOTAL BILIRUBIN 0.38 mg/dL (0.20-1.00); TOTAL PROTEIN 6.1 g/dL (6.3-8.3)
[2017-03-04 07:20] LABS: CALCIUM 6.6 mg/dL (8.8-10.2)
[2017-03-04] MEDS ORDERED: NS 1,000 ML ONE (07:35)
[2017-03-04] MEDS ORDERED: HEPARIN ONE (07:35)
[2017-03-04] MEDS ORDERED: NS 2,000 ML MISC PRN (08:14)
[2017-03-04] MEDS ORDERED: HEPARIN IV PRN (08:14)
[2017-03-04] MEDS ORDERED: TIGHT: 0.2 ML/HR MISC PRN (08:14)
[2017-03-04] MEDS: PROTONIX IV SCH (08:58)
[2017-03-04] MEDS: SODIUM CHLORIDE 0.9% INJ SCH (08:58)
[2017-03-04] MEDS: MERREM 500 MG in NS 50 ML IV SCH ×2 (13:44→20:49)
[2017-03-04] MEDS: LEVAQUIN PO SCH (13:45)
[2017-03-04] MEDS: EPOGEN SUBQ SCH (13:50)
--- NOTE | 2017-03-04 15:58 | PROGRESS NOTE ---
DATE: 03/04/2017 SUBJECTIVE: Patient is sitting up in a chair. She underwent dialysis earlier today without difficulty. OBJECTIVE: Vital signs: Temperature 95.6 degrees, pulse 77, respiratory rate 18, blood pressure 119/59. Intake 600 mL. Output 2 L. General: Elderly female, sitting up in a chair. She is awake, alert, in no acute distress. HEENT: Normocephalic, atraumatic. Oral mucosa moist. Arcus senilis noted. Neck: Supple. Trachea midline. No JVD. Cardiovascular: Regular rate and rhythm. Systolic murmur. Pulmonary: Equal excursion. She is clear bilaterally today. There is no increased work of breathing. She is on 2 L nasal cannula. Abdomen: Soft, with positive bowel sounds. : Not inspected. Extremities: Left AV fistula currently with bandage after dialysis. Trace pretibial edema. Integumentary: Skin is warm and dry. LAB DATA: WBC of 19.7, hemoglobin 7.1, sodium 128, potassium 4.3, CO2 23, creatinine 7.3, calcium 6.6, albumin 2.9. ASSESSMENT AND PLAN: 1. Chronic kidney disease 5 with progression of end-stage renal disease. We have her on a Thursday, Thursday, Thursday schedule while she is in the hospital. We will continue this until she is discharged and transitioned over to outpatient dialysis. 2. Anemia. Hemoglobin 7.1 today. She received 2 units of packed red blood cells on dialysis. 3. Electrolytes, acid-base balance. These are acceptable. Continue to adjust dialysis bath for a normal sodium and normal calcium bath. 4. Fluid volume. Improved. 5. Medication review. No changes needed. Dictated by MINDI Mercer for Ye Moore MD Patient seen, data reviewed, discussed with Qing Schneider on 03/04/17. I agree with the above assessment and plan of care. cc: MD Yeimi Anaya MD MTDD
[2017-03-04] MEDS ORDERED: VANCOMYCIN 1 GM/NS 1 GM/250 ML IVPB IV ONE (17:00)
--- NOTE | 2017-03-04 19:43 | PROGRESS NOTE ---
DATE: 03/04/2017 PRESENT ILLNESS: The patient is receiving antibiotics for pneumonia. MEDICATIONS: This is day 6 of treatment with a combination of Levaquin, meropenem and vancomycin. PHYSICAL EXAMINATION: Vital Signs: Temperature is 97.4 degrees, pulse 61, respirations 16, blood pressure 120/62. This is an obese, elderly female. She today looks much better. She is more alert and talking. She is in no acute distress. Lungs: Clear to auscultation. Cardiovascular: Heart rate is regular. Abdomen: Soft and nontender. Extremities: The right arm has an AV fistula. Chest: The patient has a Port-A-Cath present in the right side and the site is not swollen or erythematous. LAB AND X-RAY: There is no new x-ray today. The [place] [address], hemoglobin 7.1 and platelet count 262,000. There is no new radiographic study today. ASSESSMENT AND PLAN: Patient has pneumonia. I plan to continue her current antibiotics. Tomorrow Dr. Mancini has ordered a chest x-ray on her. COMORBIDITIES: Include multiple myeloma, low IgA level, and she is elderly. cc: MD Yeimi Jean MD
[2017-03-05] MEDS: ATIVAN IV PRN (03:36)
[2017-03-05] MEDS: DUONEB (A & A) INH SCH ×5 (04:20→21:52)
[2017-03-05] MEDS: HEPARIN SUBQ SCH ×3 (05:44→21:03)
[2017-03-05] MEDS: SOLU-MEDROL IV SCH ×3 (05:44→21:03)
[2017-03-05 07:04] LABS: MANUAL DIFF NEEDED? NO
[2017-03-05 07:14] LABS: BASO% 0.2 % (0.0-0.8); HEMOGLOBIN 8.7 g/dL (12.0-16.0); IMM GRAN# 0.63 X1000 (0.0-0.04); IMM GRAN% 3.2 % (0.0-0.5); LYMPH# 0.78 X1000 (1.2-3.4); MCH 28.8 PG (27-31); MCHC 33.5 g/dL (33-37); MCV 86.1 FL (81-99); MONO% 8.2 % (1.7-9.3); MPV 9.7 FL (7.4-10.4); NEUT% 84.4 % (42.2-75.2); PLT 225 X1000 (130-400); RBC 3.02 XMIL (4.2-5.4)
--- NOTE | 2017-03-05 07:21 | Diag Imaging Result Doc PS360 ---
EXAM: CHEST-PORTABLE HISTORY: Pneumonia TECHNIQUE: Portable COMPARISON: 03/03/2017 FINDINGS: Poor inspiratory effort. No change in the right sided portacatheter. No pneumothorax. The heart remains enlarged. There is a small left pleural effusion. There is vascular distention on the current exam. This is more pronounced on the prior study. IMPRESSION: Worsening pulmonary edema. No other interval change. Electronically signed by Primo Mathew 03/05/2017 7:18 AM
[2017-03-05 07:28] LABS: IRON SATURATION 30 %; TIBC 162 ug/dL; TOTAL IRON 48 ug/dL (49-151); UNBOUND IRON 114 ug/dL (112-346)
[2017-03-05 07:38] LABS: POTASSIUM 4.1 mmol/L (3.5-5.1)
[2017-03-05] MEDS: MERREM 500 MG in NS 50 ML IV SCH ×2 (07:56→21:03)
[2017-03-05 08:07] LABS: CALCIUM 6.3 mg/dL (8.8-10.2)
[2017-03-05 08:08] LABS: FERRITIN 4013 ng/mL (13-150)
[2017-03-05] MEDS: LEVAQUIN PO SCH (09:23)
[2017-03-05] MEDS: SODIUM CHLORIDE 0.9% INJ SCH (09:23)
[2017-03-05] MEDS: PROTONIX IV SCH (09:23)
--- NOTE | 2017-03-05 14:54 | PROGRESS NOTE ---
DATE: 03/05/2017 SUBJECTIVE: Patient is sitting up in a chair. She states that physical therapy has come and worked with her today. OBJECTIVE: Vital Signs: Temperature 98.8 degrees, pulse 78, respiratory rate 17, blood pressure 120/59. Intake 1.8 L. Output 2 L. General: This is an elderly female resting in a chair. She is in no acute distress, awake and alert. HEENT: Normocephalic, atraumatic. YKRA, or arcus senilis noted. Her oral mucosa is moist. Neck: Supple. Trachea midline. No JVD noted. Cardiovascular: Regular rate and rhythm with a systolic murmur. Pulmonary: Equal excursion. She is clear today. She has no increased work of breathing. Remains on 2 L nasal cannula for O2 supplementation. Abdomen: Soft, with positive bowel sounds. : Not inspected. Extremities: Left upper extremity AV fistula noted. She has no pretibial edema. Integumentary: Skin is warm and dry without rash or lesion. LAB DATA: WBC of 19.5, hemoglobin 8.7. Sodium 134, potassium 4.1, CO2 24, creatinine 5.4, calcium 6.3. Iron 48, saturation 30%, ferritin 4013, folate 7.8 and vitamin B 12 greater than 2000. ASSESSMENT AND PLAN: 1. Chronic kidney disease stage V with progression to end-stage renal disease. She is now on a Thursday, Thursday, Thursday schedule. We will continue her on this while she is in the hospital, and can be transitioned over to outpatient dialysis. 2. Anemia. She received 2 units of packed red blood cells yesterday. Her iron stores are acceptable. Of note, she does have a multiple myeloma and has been followed by Hematology/Oncology. Unclear the last time she was seen in the hospital. 3. Electrolytes, acid-base balance. These are acceptable. Check labs in the morning. Adjust her dialysis bath as needed. 4. Hypocalcemia. We will adjust her dialysis bath appropriately for maintenance. 5. Fluid volume. She appears euvolemic at this time. Dictated by MINDI Mercer for Ye Moore MD Patient seen, data reviewed, discussed with Qing Schneider on 03/05/17. I agree with the above assessment and plan of care. cc: YeMD Yeimi Rmasey MD [facility]
--- NOTE | 2017-03-05 17:04 | PROGRESS NOTE ---
DATE: 03/05/2017 PRESENT ILLNESS: The patient is receiving antibiotics for pneumonia. She also has a leukocytosis. MEDICATIONS: This is day 7 of treatment with the combination of Levaquin, meropenem, and vancomycin. the Levaquin is p.o., the meropenem is IV, and the vancomycin is given after each dialysis. PHYSICAL EXAMINATION: Vital Signs: Temperature is 97.5 degrees, pulse 88, respirations 18, blood pressure 142/60. General: This is an obese, elderly female. She continues to look better each day. She is fully alert. She does not have any trouble breathing. CV: Regular heart rate. Lungs: Clear to auscultation. Extremities: The left arm has a functioning AV fistula in it. Chest: Patient has a right-sided Port-A-Cath in place. The site is not swollen or tender. LAB AND X-RAY: Chest x-ray shows worsening pulmonary edema. Lab shows a CBC with a white count of 19,530, hemoglobin 8.7, and platelet count 225,000. Creatinine is 5.4. GFR is 9. Blood and urine cultures are negative. ASSESSMENT AND PLAN: The patient appears to have pulmonary edema. I think there could be an element of pneumonia as well. She does have a leukocytosis which could be due to pneumonia but in addition the patient is on steroids which could cause leukocytosis. My assessment is that she does have pulmonary edema, there may well be pneumonia and for now I would like to continue her antibiotics. COMORBIDITIES: Include: Multiple myeloma, low IgA level. The patient is elderly. She has end- stage renal disease and is on dialysis. cc: MD Yeimi Jean MD
[2017-03-06] MEDS: ATIVAN IV PRN ×2 (00:18→21:27)
[2017-03-06] MEDS: DUONEB (A & A) INH SCH ×4 (04:04→22:00)
[2017-03-06] MEDS: SOLU-MEDROL IV SCH ×3 (05:48→21:27)
[2017-03-06] MEDS: HEPARIN SUBQ SCH ×3 (05:48→21:26)
[2017-03-06] MEDS ORDERED: HEPARIN IV PRN (07:00)
[2017-03-06] MEDS ORDERED: NS 2,000 ML MISC PRN (07:00)
[2017-03-06] MEDS ORDERED: TIGHT: 0.2 ML/HR MISC PRN (07:00)
[2017-03-06 07:42] LABS: BASO% 0.1 % (0.0-0.8); EOS# 0.01 X1000 (0.0-0.7); HEMATOCRIT 26.6 % (37.0-47.0); HEMOGLOBIN 8.9 g/dL (12.0-16.0); IMM GRAN# 0.65 X1000 (0.0-0.04); IMM GRAN% 2.8 % (0.0-0.5); LYMPH% 3.5 % (20.5-51.1); MANUAL DIFF NEEDED? YES; MCHC 33.5 g/dL (33-37); MCV 86.6 FL (81-99); MONO# 1.49 X1000 (0.11-0.59); MONO% 6.5 % (1.7-9.3); MPV 9.9 FL (7.4-10.4); NEUT% 87.1 % (42.2-75.2); PLT 220 X1000 (130-400); RBC 3.07 XMIL (4.2-5.4)
[2017-03-06 07:48] LABS: POTASSIUM 4.2 mmol/L (3.5-5.1)
[2017-03-06 07:50] LABS: BANDS 4 % (0-1); LYMPHS 10 % (21-51); NRBC 1 % (0-0); POLYCHROM 1+
[2017-03-06 07:51] LABS: HYPOCHROM 1+
[2017-03-06 08:00] LABS: CALCIUM 5.9 mg/dL (8.8-10.2)
--- NOTE | 2017-03-06 09:05 | PROGRESS NOTE ---
DATE: 03/06/2017 SUBJECTIVE: She states she has been eating okay. She is in bed currently. No nausea, vomiting or shortness of breath. OBJECTIVE: Vital Signs: Blood pressure 141/55, heart rate 80, respirations 17, afebrile. Intake and output are incomplete. General: No acute distress. Skin: Warm and dry. Conjunctivae are pink. Neck veins are not appreciated. Oropharynx is moist. Heart: Regular with S4. Lungs: Have equal breath sounds. No crackles or wheezes. Abdomen: Soft, nontender. Bowel sounds present. Extremities: Have trace edema. No clubbing or cyanosis. LABORATORY DATA: Sodium 133, potassium 4.2, chloride 90, bicarbonate 21, BUN 78, creatinine 6.7 hemoglobin 8.9. IMPRESSION: 1. End-stage kidney disease secondary to multiple myeloma. We will schedule her next dialysis treatment either today or tomorrow based on her outpatient plan. Electrolytes and acid-base are well managed. 2. Anemia is in target. She is followed by Hematology. Continue folic acid and erythropoietin. cc: MD Yeimi Anaya MD
[2017-03-06] MEDS: FOLIC ACID PO SCH (10:06)
[2017-03-06] MEDS: PROTONIX IV SCH (10:06)
[2017-03-06] MEDS: LEVAQUIN PO SCH (10:06)
[2017-03-06] MEDS: EPOGEN SUBQ SCH (10:06)
[2017-03-06] MEDS: MERREM 500 MG in NS 50 ML IV SCH ×2 (10:06→22:46)
[2017-03-06] MEDS: SODIUM CHLORIDE 0.9% INJ SCH (10:06)
[2017-03-06] MEDS ORDERED: CALCIUM GLUCONATE 1 GM in NS 50 ML IV ONE (10:30)
[2017-03-06] MEDS ORDERED: NS 250 ML ONE (11:22)
--- NOTE | 2017-03-06 16:01 | PROGRESS NOTE ---
DATE: 03/06/2017 PRESENT ILLNESS: The patient is being treated for presumed pneumonia. There could be a component of pulmonary venous congestion as well. The patient has leukocytosis. This could be due to her presumed pneumonia, but also it should be noted that the patient is on fairly high dose of steroids, and this could be causing some or most of her leukocytosis as well. MEDICATIONS: The patient has been on p.o. Levaquin, IV meropenem and IV vancomycin now for 8 days. PHYSICAL EXAMINATION: Vital Signs: Temperature is 97.5 degrees, pulse 78, respirations 15, blood pressure 141/55. General: This is a chronically ill-appearing, elderly female. She is in no acute distress. Lungs: Clear to auscultation. Cardiovascular: Regular heart rate. Abdomen: Soft and nontender. Chest: Patient has a tunneled dialysis catheter in place on the right side. The site is not swollen. DIAGNOSTIC DATA: The patient's white count is 22,880, hemoglobin 8.9, and platelet count 220,000. Creatinine is 6.7, GFR is 7. ASSESSMENT AND PLAN: 1. Patient is being treated for possible pneumonia and the leukocytosis could be from that or as mentioned above, could be because she is on steroids. For now, I would like to continue her current antibiotics and then repeat her studies the 1st part of the week, namely CBC, BMP and chest x-ray. 2. Patient's comorbidities include multiple myeloma, low IgA level, patient is elderly and she has end-stage renal disease and is on dialysis. 3. I plan to order a CBC and a chest x-ray for the 1st part of the week. cc: MD Yeimi Jean MD
[2017-03-07] MEDS: ATIVAN IV PRN ×2 (02:40→23:16)
[2017-03-07] MEDS: DUONEB (A & A) INH SCH ×4 (03:38→22:20)
[2017-03-07 06:33] LABS: BASO% 0.1 % (0.0-0.8); EOS# 0.01 X1000 (0.0-0.7); HEMATOCRIT 25.8 % (37.0-47.0); HEMOGLOBIN 8.6 g/dL (12.0-16.0); IMM GRAN# 0.58 X1000 (0.0-0.04); IMM GRAN% 2.3 % (0.0-0.5); LYMPH# 0.58 X1000 (1.2-3.4); LYMPH% 2.3 % (20.5-51.1); MANUAL DIFF NEEDED? YES; MCH 28.7 PG (27-31); MCHC 33.3 g/dL (33-37); MONO# 1.16 X1000 (0.11-0.59); MONO% 4.7 % (1.7-9.3); MPV 9.4 FL (7.4-10.4); NEUT% 90.6 % (42.2-75.2); PLT 210 X1000 (130-400)
[2017-03-07 06:42] LABS: BANDS 8 % (0-1); LYMPHS 2 % (21-51); MONO 4 % (1-9)
[2017-03-07] MEDS: HEPARIN SUBQ SCH ×3 (06:49→23:17)
[2017-03-07] MEDS: SOLU-MEDROL IV SCH ×3 (06:49→23:17)
[2017-03-07 07:03] LABS: CALCIUM 5.3 mg/dL (8.8-10.2); MAGNESIUM 1.9 mg/dL (1.5-2.7); POTASSIUM 4.7 mmol/L (3.5-5.1)
--- NOTE | 2017-03-07 07:52 | Diag Imaging Result Doc PS360 ---
EXAM: CHEST-PORTABLE INDICATION: Pneumonia; Pleural Effusion TECHNIQUE: One view COMPARISON: 03/05/2017 FINDINGS: Right chest port is in stable position. Inspiration remains suboptimal.9 pulmonary venous congestion and increased interstitial markings suggesting edema is approximately stable given differences in exposure. The left effusion is unchanged. No new consolidation is appreciated. There is stable cardiomegaly. IMPRESSION: Grossly stable chest. Electronically signed by Gary Kendall 03/07/2017 7:50 AM
[2017-03-07] MEDS ORDERED: CALCIUM GLUCONATE 2 GM in NS 100 ML IV ONE (08:00)
[2017-03-07] MEDS ORDERED: HEPARIN IV PRN (08:22)
[2017-03-07] MEDS ORDERED: NS 2,000 ML MISC PRN (08:22)
[2017-03-07] MEDS ORDERED: TIGHT: 0.2 ML/HR MISC PRN (08:22)
[2017-03-07] MEDS ORDERED: NS 2,000 ML ONE (08:35)
[2017-03-07] MEDS ORDERED: HEPARIN ONE (08:35)
[2017-03-07] MEDS ORDERED: ZOFRAN ONE (11:13)
[2017-03-07] MEDS: ZOFRAN IV PRN (11:20)
--- NOTE | 2017-03-07 13:37 | PROGRESS NOTE ---
DATE: 03/07/2017 SUBJECTIVE: Ms. Mcconnell had some nausea and vomiting on dialysis this morning. She states that her nausea began shortly after she ate her breakfast. No shortness of breath. She has been out of bed and worked with therapy. OBJECTIVE: Vital Signs: Blood pressure 131/65, heart rate 82, respiration 19, afebrile. General: No acute distress. She does not feel well however. Skin: Warm and dry. HEENT: Conjunctivae are pink. Pupils are equal. Neck: Neck veins are not appreciated. Heart: Regular with a gallop. Lungs: Have equal breath sounds. No crackles. Abdomen: Soft, nontender. Bowel sounds present. Extremities: Have 2+ edema. No clubbing or cyanosis. LABORATORY DATA: Sodium 128, potassium 4.7, chloride 87, bicarbonate 20, BUN 99, creatinine 7.5, hemoglobin 8.6. IMPRESSION: 1. End-stage kidney disease. She is receiving dialysis currently using a 2 potassium bath. Goal of 3-4 L as her blood pressure allows. 2. Electrolytes: Her calcium is down to 5.3. She received a single dose of pamidronate in the emergency room for hypercalcemia. She is hypoalbuminemic with her last measured albumin of 2.9. Still hypocalcemic despite correction. I am reluctant to add oral calcium given her myeloma and multiple bone lesions. She does not appear to be symptomatic so no treatment. 3. Acid-base in target. 4. Anemia, stable following transfusion. On erythropoietin. cc: MD Yeimi Anaya MD
[2017-03-07] MEDS: MERREM 500 MG in NS 50 ML IV SCH ×2 (14:03→23:15)
[2017-03-07] MEDS: SODIUM CHLORIDE 0.9% INJ SCH (14:03)
[2017-03-07] MEDS: PROTONIX IV SCH (14:03)
[2017-03-07] MEDS: FOLIC ACID PO SCH (14:03)
[2017-03-07] MEDS: LEVAQUIN PO SCH (14:03)
[2017-03-07] MEDS ORDERED: CALCIUM CARBONATE PO SCH (17:00)
[2017-03-07] MEDS ORDERED: VANCOMYCIN 1 GM/NS 1 GM/250 ML IVPB IV ONE (17:00)
--- NOTE | 2017-03-07 17:32 | PROGRESS NOTE ---
DATE: 03/07/2017 SUBJECTIVE: This morning, Ms. Mcconnell was actually sitting up in the chair. Denies any complaints. OBJECTIVE: Vital signs: Blood pressure is 128/64, pulse is 91, respirations 18, temperature is 97.3. General: Ms. Mcconnell is a 81-year-old female. She was sitting up in the chair, seems to be in mild respiratory distress. Mucosa is slightly pale, anicteric and acyanotic. Neck: Supple. Questionable JVD. Chest: Air entry is bilaterally reduced. There are some diffuse bilateral posterior crepitations. Cardiovascular: Regular rate and rhythm. I did not appreciate any murmur. No rubs, no gallops. Abdomen: Soft, nontender. Extremities: 1+ pedal edema. 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 There is no focal neurological deficit. DIAGNOSTIC DATA: WBC is 24.87, hemoglobin 8.6, platelet count of 210. Sodium is 128, potassium 4.7, chloride 87, bicarb 20, creatinine 7.5 consistent with end stage renal disease. Calcium is 6.0, phosphorus is 4.5, magnesium is 1.9. PTH is 439. A chest x-ray this morning shows pulmonary venous congestion and interstitial markings suggestive of edema which is stable. Left pleural effusion is unchanged. ASSESSMENT: 1. Symptomatic hypercalcemia on presentation. The patient received one dose of pamidronate in the emergency department. Subsequently her calcium has normalized and now is extremely low. We gave her one dose of calcium gluconate this morning. 2. Pulmonary edema with cardiomegaly, likely secondary to diastolic heart failure as well as end stage renal disease. The patient is getting scheduled dialysis. 3. Suspected pneumonia. White count continues to be climbing. The patient is currently on antibiotics. Dr. Littlejohn is onboard. 4. Secondary hyperparathyroidism, likely due to the underlying renal disease. We will start the patient on cinacalcet. 5. Anemia, etiology could be multifactorial including associated with chronic kidney disease as well as underlying malignancy. The patient is status post 4 PRBC transfusion. Hemoglobin and hematocrit are now stable. 6. History of multiple myeloma. The patient follows up with Dr. Harley. PLAN: In general, I think Ms. Mcconnell is stable but a very sick elderly lady who presented initially because of hypercalcemia, was treated with pamidronate. Subsequently her calcium has actually been on the lower end. From nephrology note, they do not plan to replace the calcium because of the history of multiple myeloma. The patient also has significant secondary hyperparathyroidism. We will start her on cinacalcet. cc: MD Yeimi Lara MD
[2017-03-07] MEDS: SENSIPAR PO SCH (17:40)
[2017-03-08] MEDS: ZOFRAN IV PRN ×2 (00:13→06:41)
[2017-03-08] MEDS: DUONEB (A & A) INH SCH ×4 (04:01→21:10)
[2017-03-08] MEDS: HEPARIN SUBQ SCH ×3 (05:21→22:09)
[2017-03-08] MEDS: SOLU-MEDROL IV SCH ×3 (05:21→22:09)
[2017-03-08 07:21] LABS: BASO% 0.1 % (0.0-0.8); HEMATOCRIT 26.4 % (37.0-47.0); HEMOGLOBIN 8.7 g/dL (12.0-16.0); IMM GRAN% 1.7 % (0.0-0.5); LYMPH# 0.57 X1000 (1.2-3.4); LYMPH% 2.5 % (20.5-51.1); MANUAL DIFF NEEDED? YES; MCH 28.8 PG (27-31); MCV 87.4 FL (81-99); MONO# 1.05 X1000 (0.11-0.59); MONO% 4.5 % (1.7-9.3); MPV 10.2 FL (7.4-10.4); NEUT% 91.2 % (42.2-75.2); PLT 200 X1000 (130-400); RBC 3.02 XMIL (4.2-5.4)
[2017-03-08 07:35] LABS: POTASSIUM 4.7 mmol/L (3.5-5.1)
[2017-03-08 07:46] LABS: CALCIUM 5.5 mg/dL (8.8-10.2)
[2017-03-08 07:56] LABS: BANDS 2 % (0-1); HYPOCHROM 1+; MONO 2 % (1-9)
[2017-03-08 07:57] LABS: TARGET CELLS 1+
[2017-03-08] MEDS ORDERED: CALCIUM GLUCONATE 4.65 MEQ in NS 50 ML IV ONE ×2 (08:30→08:40)
[2017-03-08] MEDS: SODIUM CHLORIDE 0.9% INJ SCH (09:42)
[2017-03-08] MEDS: PROTONIX IV SCH (09:42)
[2017-03-08] MEDS: FOLIC ACID PO SCH (09:42)
[2017-03-08] MEDS: LEVAQUIN PO SCH (09:42)
[2017-03-08] MEDS: SENSIPAR PO SCH ×2 (09:42→09:52)
[2017-03-08] MEDS: MERREM 500 MG in NS 50 ML IV SCH ×2 (10:25→22:08)
--- NOTE | 2017-03-08 15:17 | PROGRESS NOTE ---
DATE: 03/08/2017 SUBJECTIVE: This morning this patient was sitting up in a chair, she denies any nausea, vomiting, diarrhea, constipation. No chest pain. No shortness of breath. No complaints. OBJECTIVE: Vital Signs: Temperature 97.6 degrees, pulse 89, respiratory rate 18, blood pressure 136/65, oxygen saturation 100% on 2 L of nasal cannula. HEENT: Head normocephalic. No trauma. PERRLA. Neck: Supple. No JVD. No masses. Central trachea. Chest: Decreased air bilaterally, some crepitations, scattered. Cardiovascular: RRR. Abdomen: Soft, nontender, nondistended. No hepatosplenomegaly. Extremities: Trace pedal edema. Neurologic: The patient is alert and oriented. She is awake, she is following commands. No focal deficits. She has mild tremors at the level of the hands with movement. LABORATORY: WBC 23, hemoglobin 8.7, hematocrit 26.4, platelets 200,000, sodium 134, potassium 4.7, chloride 91, bicarbonate 22, BUN 72, creatinine 5.8, glucose 172, calcium 5.5. ASSESSMENT AND PLAN: 1. Symptomatic hypercalcemia on presentation, this patient received 1 dose of pamidronate in the emergency department and after that this patient calcium normalized and now is extremely low, I have ordered a calcium gluconate this morning for this patient. Nephrology Department following this patient. 2. Pulmonary edema with cardiomegaly likely secondary to diastolic heart failure as well and end- stage renal disease. This patient is getting scheduled dialysis. 3. End-stage renal disease on hemodialysis. Continue with the same schedule. 4. Suspected pneumonia. Her WBC is high, this patient is currently on antibiotics and Infectious Disease Department on board. 5. Secondary hyperparathyroidism likely secondary to end-stage renal disease. 6. Anemia likely secondary to chronic kidney disease and also her history of malignancy, multiple myeloma. 7. History of multiple myeloma. The patient follows up with Dr. Harley. DISPOSITION: This patient looks stable but her calcium level is low, we will continue following the recommendations of Nephrology Department and monitoring her calcium level. cc: MD Yeimi Baldwin MD
[2017-03-08] MEDS ORDERED: G.I. COCKTAIL PO ONE (15:36)
[2017-03-09] MEDS: DUONEB (A & A) INH SCH ×4 (03:47→21:43)
[2017-03-09] MEDS: SOLU-MEDROL IV SCH ×2 (05:17→13:23)
[2017-03-09] MEDS: HEPARIN SUBQ SCH ×3 (05:17→21:23)
[2017-03-09 06:06] LABS: BASO% 0.1 % (0.0-0.8); HEMATOCRIT 25.9 % (37.0-47.0); HEMOGLOBIN 8.5 g/dL (12.0-16.0); IMM GRAN# 0.35 X1000 (0.0-0.04); IMM GRAN% 1.8 % (0.0-0.5); LYMPH# 0.58 X1000 (1.2-3.4); LYMPH% 2.9 % (20.5-51.1); MANUAL DIFF NEEDED? YES; MCH 28.6 PG (27-31); MCHC 32.8 g/dL (33-37); MCV 87.2 FL (81-99); MONO# 1.22 X1000 (0.11-0.59); MONO% 6.1 % (1.7-9.3); MPV 9.9 FL (7.4-10.4); NEUT% 89.1 % (42.2-75.2); PLT 173 X1000 (130-400); RBC 2.97 XMIL (4.2-5.4)
[2017-03-09 06:20] LABS: POTASSIUM 5.4 mmol/L (3.5-5.1); TOTAL BILIRUBIN 0.41 mg/dL (0.20-1.00); TOTAL PROTEIN 6.3 g/dL (6.3-8.3)
[2017-03-09 06:23] LABS: CALCIUM 5.5 mg/dL (8.8-10.2)
[2017-03-09 06:57] LABS: HYPOCHROM 2+; LYMPHS 5 % (21-51); MONO 3 % (1-9)
[2017-03-09] MEDS ORDERED: HEPARIN IV PRN (07:24)
[2017-03-09] MEDS ORDERED: TIGHT: 0.2 ML/HR MISC PRN (07:24)
[2017-03-09] MEDS ORDERED: NS 2,000 ML MISC PRN (07:24)
--- NOTE | 2017-03-09 07:24 | Diag Imaging Result Doc PS360 ---
EXAM: CHEST-1 VIEW HISTORY: pneumonia TECHNIQUE: Portable AP COMPARISON: 04/06/2017 FINDINGS: The heart remains enlarged. Central vascular prominence in addition to at least a small to moderate-sized left-sided pleural effusion. There is left basilar atelectasis and there could be an underlying infiltrate. No change in the right-sided portacatheter. No pneumothorax. 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 IMPRESSION: No interval improvement. Electronically signed by Primo Mathew 03/09/2017 7:22 AM
[2017-03-09] MEDS ORDERED: NS 2,000 ML ONE (08:53)
[2017-03-09] MEDS ORDERED: HEPARIN ONE (08:53)
--- NOTE | 2017-03-09 12:18 | PROGRESS NOTE ---
DATE: 03/09/2017 SUBJECTIVE: Aylin Mcconnell is currently resting in bed. She has no complaints. Her son is at her bedside. Denies shortness of breath or chest pain. OBJECTIVE: Her most recent vital signs, temperature 98.8 degrees, blood pressure 140/64, heart rate 78, respirations 18. She is on 2 L nasal cannula. Last recorded saturation is 97%. She has had 150 in and she has had 400+ out void. LABORATORY DATA: Sodium is 133, potassium 5.4, chloride 90, CO2 22, BUN 80, creatinine 6.8, glucose 133. Her anion gap is 21, calcium 5.5, phosphorus 6.3, albumin 3. White count 19.93, hemoglobin 8.5, hematocrit 25.9, platelet count 173,000. Her PTH is 439, hydroxy D is 32.7. PHYSICAL EXAMINATION: General: This is a 81-year-old, female. She is currently resting in bed. Skin: Warm and dry. HEENT: Normocephalic, atraumatic. Conjunctivae pale. She has KYRA. Mucous membranes are moist. Neck: Supple. Trachea midline. No JVD. Cardiovascular: She has a regular rate and rhythm. She has a gallop. No murmur. Lungs: Clear to auscultation anteriorly. Equal excursion on O2. Abdomen: Soft, nontender. Positive bowel sounds. Genitourinary: Not inspected. Patient has been voiding adequate out. Fistula noted to the left forearm. Extremities: Lower extremities continues with 1 to 2+ lower extremity edema. Neurological: She is alert and oriented x2. ASSESSMENT AND PLAN: 1. End-stage renal disease. The patient continues to receive hemodialysis. She is scheduled for today. We will place her on a 2 K bath. She is to dialyze for 3-1/2 hours. We will attempt to pull 3-4 L of ultrafiltration as tolerated. 2. Electrolytes. Her calcium remains low at 5.5. She has received a single dose of pamidronate in the emergency room for hypercalcemia. She is hypoalbuminemic. Last measured albumin was 3. We will not add or change any calcium supplement given that she has multiple myeloma and multiple bone lesions. She is asymptomatic. 3. Acid-base balance. This remains stable with correction on dialysis. 4. Anemia. This remains low but stable. She remains on erythropoietin. 5. Sepsis. Patient remains on renal dosed antibiotics. She continues on Zosyn and Merrem. I would to thank you for allowing us to follow with this patient. Dictated by MINDI Bañuelos for Ye Moore MD Patient seen, data reviewed, discussed with Geoffrey Rosenbaum on 03/09/17. I agree with the above assessment and plan of care. cc: MINDI Bañuelos MD Adnan A. Seljuki, MD [facility]
[2017-03-09] MEDS: SENSIPAR PO SCH (13:24)
[2017-03-09] MEDS: FOLIC ACID PO SCH (13:25)
[2017-03-09] MEDS: LEVAQUIN PO SCH (13:25)
[2017-03-09] MEDS: EPOGEN SUBQ SCH (13:36)
[2017-03-09] MEDS: SODIUM CHLORIDE 0.9% INJ SCH (13:36)
[2017-03-09] MEDS: PROTONIX IV SCH (13:36)
[2017-03-09] MEDS: MERREM 500 MG in NS 50 ML IV SCH ×2 (13:39→21:23)
--- NOTE | 2017-03-09 14:52 | PROGRESS NOTE ---
DATE: 03/09/2017 PRESENT ILLNESS: Is for pneumonia in the left lower lobe. MEDICATIONS: The patient has been on Levaquin and meropenem now for 11 days and vancomycin for 14 days. PHYSICAL EXAMINATION: Vital Signs: Temperature is 98.8 degrees, pulse 78, respirations 18, blood pressure 140/64. General: This is a chronically ill-appearing, elderly female. She is in no acute distress. Lungs: Clear to auscultation. Cardiovascular: Regular heart rate. Thorax: The patient has a Port-A-Cath present on the right side. The site is not swollen or tender. Extremities: In the left arm there is an AV fistula which also is not swollen or tender. LAB AND X-RAY: Chest x-ray shows possible left lower lobe pneumonia and vascular prominence. CBC shows a white count of 19,930 hemoglobin 8.5, and platelet count 173,000. Creatinine is 6.8. GFR is 7. Blood and urine cultures are sterile. ASSESSMENT AND PLAN: The patient has pneumonia along with leukocytosis. Some of the patient's leukocytosis I think can be explained by the fact that she also is on steroids. My plan now is to continue vancomycin and continue with Levaquin and meropenem for a few more days. COMORBIDITIES: Include end-stage renal disease, hemodialysis, multiple myeloma with a low IgA level and the patient is elderly. cc: MD Yeimi Jean MD
[2017-03-09] MEDS ORDERED: CALCIUM GLUCONATE 4.65 MEQ in NS 50 ML IV ONE (17:00)
[2017-03-09] MEDS ORDERED: VANCOMYCIN 1 GM/NS 1 GM/250 ML IVPB IV ONE (17:00)
--- NOTE | 2017-03-09 17:06 | PROGRESS NOTE ---
DATE: 03/09/2017 SUBJECTIVE: Patient has no focal complaints. She is sitting up in chair. Seems well. OBJECTIVE: Vital signs: Blood pressure 135/61, heart rate of 87, respiratory rate 18, temperature 98 degrees, 100% saturation on 2 L. Cardiovascular: Regular rate and rhythm. Pulmonary: Bilateral breath sounds. Clear to auscultation. GI: Soft, nontender, nondistended. Bowel sounds are positive. LABORATORY DATA: White count of 19, hemoglobin and hematocrit 8 and 25, platelets 173,000. Sodium 134. BUN and creatinine 80 and 6.8. Calcium of 5.5. PROBLEM LIST: 1. Hypocalcemia. We will continue to supplement and follow closely. She had hypercalcemia on admission. 2. Volume overload. She is on dialysis, seems to be doing okay. 3. End-stage renal on dialysis per Renal Service Thursday, Thursday, Thursday. 4. Pneumonia. White count is still high. She is still empirically on antibiotics. DISPOSITION: Pending resolution of her calcium levels, hopefully home in the next 1-2 days. Plan will be hopefully to get her home with home health versus other. cc: MD Yeimi Barrera MD
[2017-03-09] MEDS: CALTRATE 600 PO SCH (21:23)
[2017-03-10] MEDS: ATIVAN IV PRN (03:25)
[2017-03-10] MEDS: DUONEB (A & A) INH SCH ×4 (03:39→21:41)
[2017-03-10] MEDS: HEPARIN SUBQ SCH ×3 (05:36→21:59)
[2017-03-10] MEDS: SOLU-MEDROL IV SCH ×2 (05:36→17:34)
[2017-03-10 06:43] LABS: HEMATOCRIT 27.7 % (37.0-47.0); HEMOGLOBIN 8.9 g/dL (12.0-16.0); MCH 29.4 PG (27-31); MCHC 32.1 g/dL (33-37); MCV 91.4 FL (81-99); MPV 10.1 FL (7.4-10.4); RBC 3.03 XMIL (4.2-5.4)
[2017-03-10 06:56] LABS: POTASSIUM 4.6 mmol/L (3.5-5.1)
[2017-03-10 07:08] LABS: CALCIUM 6.1 mg/dL (8.8-10.2)
[2017-03-10] MEDS: SODIUM CHLORIDE 0.9% INJ SCH (09:31)
[2017-03-10] MEDS: PROTONIX IV SCH (09:31)
[2017-03-10] MEDS: MERREM 500 MG in NS 50 ML IV SCH ×2 (09:32→21:59)
[2017-03-10] MEDS: LEVAQUIN PO SCH (09:33)
[2017-03-10] MEDS: CALTRATE 600 PO SCH ×2 (09:33→21:59)
[2017-03-10] MEDS: SENSIPAR PO SCH (09:33)
[2017-03-10] MEDS: FOLIC ACID PO SCH (09:33)
--- NOTE | 2017-03-10 11:40 | PROGRESS NOTE ---
DATE: 03/10/2017 SUBJECTIVE: When I evaluated this patient she was sitting up in a chair. She denies any nausea, vomiting, diarrhea, constipation. No chest pain. No shortness of breath. Actually no complaints. No acute events overnight. OBJECTIVE: Vital Signs: Temperature 96.1 degrees, pulse 86, respiratory rate 14, blood pressure 136/64, oxygen saturation 98 on 2 L of nasal cannula. HEENT: Head normocephalic. No trauma. PERRLA. Neck: Supple. No JVD. No masses. Central trachea. Chest: Clear to auscultation. Decreased breath bilaterally. Some crepitations at the bases. Cardiovascular: RRR. Abdomen: Soft, nontender, nondistended. No hepatosplenomegaly. Extremities: There is 1+ lower extremity edema. Neurological: The patient is alert and oriented x3. She is following commands. No focal deficits. She has mild tremors at the level of the hands, mostly with movement. LABORATORY: WBC 20.4, hemoglobin 8.9, hematocrit 27.7, platelets 147,000. Sodium 138, potassium 4.6, chloride 93, bicarbonate 26, BUN 62, creatinine 5.7, glucose 95, calcium 6.12. ASSESSMENT AND PLAN: 1. Symptomatic hypercalcemia on presentation. This patient received 1 dose of pamidronate in the emergency department and after that this patient's calcium normalized, but now has been extremely low. She has been getting calcium gluconate but I want to hold it today. She has no symptoms. Nephrology department is following this patient. 2. Pulmonary edema with cardiomegaly, likely secondary to diastolic heart failure as well as end- stage renal disease. This patient is getting scheduled dialysis. 3. End-stage renal disease, on hemodialysis. Continue with the same schedule. 4. Suspected pneumonia. WBC is still high but this patient is getting steroids. Continue with current antibiotics. 5. Secondary hyperparathyroidism, likely secondary to end-stage renal disease. 6. History of multiple myeloma. Patient follows up with Dr. Harley. 7. Anemia, likely secondary to chronic kidney disease and history of malignancy, multiple myeloma. We will continue to monitor. 8. This patient looks stable but her calcium level is low. We will continue following the recommendation of nephrology department and monitoring her calcium level. She does have hyperparathyroidism and also multiple myeloma. Those problems can potentially increase the calcium level and this is why we are not adding any calcium supplements at this moment. Once the calcium level is better controlled, we are going to be able to send this patient either home with home health versus other. Apparently the family wants to send this patient to [facility] for rehab. cc: MD Yeimi Baldwin MD
--- NOTE | 2017-03-10 14:14 | PROGRESS NOTE ---
DATE: 03/10/2017 SUBJECTIVE: Ms. Mcconnell is resting quietly in bed. She denies any pain. No increased work of breathing. She states that she is sleepy. She has been awake most of the evening. OBJECTIVE: Her most recent vital signs are temperature 98 degrees, blood pressure 136/69, heart rate 86, respirations 18. She is on 2 L nasal cannula. Last recorded saturation 99%. She has had 590 in, 5100 out, with 4 L on dialysis. LABORATORIES: Sodium 138, potassium 4.6, chloride 93, CO2 26, BUN 62, creatinine 5.7, glucose 95. Anion gap 19, calcium is 6.1. White count 20.46, hemoglobin 8.9, hematocrit 27.7, with a platelet count of 147,000. PHYSICAL EXAMINATION: General: This is a 81-year-old, female. She is resting quietly in bed. She is in no acute distress. Skin: Warm and dry. HEENT: Normocephalic, atraumatic. Conjunctiva is pale. She has KYRA. Mucous membranes are moist. Neck: Supple. Trachea midline. No JVD. Cardiovascular: She is regular rate and rhythm. She has a soft gallop. No murmur. Lungs: Clear to auscultation anteriorly. Equal excursion on O2. Abdomen: Soft, nontender. Positive bowel sounds. Genitourinary: Not inspected. The patient has been voiding adequate amount with dialysis assist. Extremities: Fistula noted to the left forearm. Extremities are 1 to 2+ to the lower extremities. She has trace upper extremity edema. Neurological: She is alert and oriented x2. ASSESSMENT AND PLAN: 1. End-stage renal disease. The patient continues to receive hemodialysis. We will plan for dialysis in the a.m. No indications for intervention today. 2. Electrolytes and acid-base balance. These remain stable. 3. Anemia. This remains low, but stable. 4. Sepsis. The patient remains on renal-dosed antibiotics. I would to thank you for allowing us to follow with this patient. Dictated by MINDI Bañuelos for Ye Moore MD Patient seen, data reviewed, discussed with Geoffrey Rosenbaum on 03/10/17. I agree with the above assessment and plan of care. cc: Christi M. Rosenbaum, MD Yeimi Leigh MD [facility]
--- NOTE | 2017-03-10 17:13 | PROGRESS NOTE ---
DATE: 03/10/2017 PRESENT ILLNESS: The patient has pneumonia in the left lower lobe. MEDICATIONS: This is day 12 now for treatment with a combination of Levaquin and meropenem. Vancomycin was discontinued yesterday. PHYSICAL EXAMINATION: Vital Signs: Temperature is 98 degrees, pulse 82, respirations 14, blood pressure 122/48. General: This is a chronically ill-appearing, elderly female. She is in no acute distress. Cardiovascular: Regular heart rate. Lungs: Clear to auscultation. Abdomen: Soft and nontender. Thorax: Patient has a right-sided Port-A-Cath in place. The site is not swollen or tender. Extremities: The patient has an AV fistula which is functioning well, it is located in her left arm. LAB AND X-RAY: [place] [address], hemoglobin 8.9, platelet count is 147,000, creatinine is 5.7, GFR is 9. ASSESSMENT AND PLAN: The patient has pneumonia. I plan to continue Levaquin and meropenem now, this is day 12 of treatment with both of those agents. Vancomycin has been discontinued. COMORBIDITIES: Include end-stage renal disease, hemodialysis, multiple myeloma with low IgA level and the patient is elderly. cc: MD Yeimi Jean MD
[2017-03-11] MEDS: DUONEB (A & A) INH SCH ×4 (03:20→22:36)
[2017-03-11] MEDS: HEPARIN SUBQ SCH ×3 (05:43→20:55)
[2017-03-11] MEDS: SOLU-MEDROL IV SCH ×2 (05:43→17:34)
[2017-03-11 07:20] LABS: ALBUMIN 2.8 g/dL (3.5-5.0); POTASSIUM 5.1 mmol/L (3.5-5.1); TOTAL BILIRUBIN 0.53 mg/dL (0.20-1.00); TOTAL PROTEIN 5.7 g/dL (6.3-8.3)
[2017-03-11] MEDS ORDERED: TIGHT: 0.2 ML/HR MISC PRN (07:22)
[2017-03-11] MEDS ORDERED: HEPARIN IV PRN (07:22)
[2017-03-11] MEDS ORDERED: NS 2,000 ML MISC PRN (07:22)
[2017-03-11 07:32] LABS: HEMATOCRIT 25.5 % (37.0-47.0); HEMOGLOBIN 8.2 g/dL (12.0-16.0); IMM GRAN# 0.19 X1000 (0.0-0.04); IMM GRAN% 0.9 % (0.0-0.5); LYMPH# 0.38 X1000 (1.2-3.4); LYMPH% 1.8 % (20.5-51.1); MANUAL DIFF NEEDED? YES; MCH 28.6 PG (27-31); MCHC 32.2 g/dL (33-37); MCV 88.9 FL (81-99); MONO# 1.53 X1000 (0.11-0.59); MONO% 7.1 % (1.7-9.3); MPV 10.3 FL (7.4-10.4); NEUT% 90.2 % (42.2-75.2); PLT 132 X1000 (130-400); RBC 2.87 XMIL (4.2-5.4)
[2017-03-11 07:40] LABS: CALCIUM 5.7 mg/dL (8.8-10.2)
[2017-03-11 08:18] LABS: BANDS 2 % (0-1); HYPOCHROM OCCASIONAL; LYMPHS 6 % (21-51); MONO 4 % (1-9)
[2017-03-11] MEDS: SODIUM CHLORIDE 0.9% INJ SCH (08:19)
[2017-03-11] MEDS: PROTONIX IV SCH (08:19)
[2017-03-11] MEDS ORDERED: HEPARIN ONE (08:35)
[2017-03-11] MEDS ORDERED: NS 2,000 ML ONE (08:35)
--- NOTE | 2017-03-11 12:00 | PROGRESS NOTE ---
DATE: 03/11/2017 SUBJECTIVE: No acute events overnight. At this moment, this patient is getting dialysis. She denies nausea, vomiting, diarrhea, or constipation. No chest pain. No shortness of breath. She does have pneumonia and Infectious Disease Department is following this patient closely. She is on antibiotics. We will continue to monitor. OBJECTIVE: Vital Signs: Temperature 98.1 degrees, pulse 81, respiratory rate 17, blood pressure 130/59, oxygen saturation 98 on 2 L of nasal cannula. HEENT: Head is normocephalic. No trauma. PERRLA. Neck: Supple. No JVD. No masses. Central trachea. Chest: Clear to auscultation. Decreased breath sounds bilaterally. Some crepitations at the bases. Cardiovascular: RRR. Abdomen: Soft, nontender, nondistended. No hepatosplenomegaly. Extremities: 1+ lower extremity edema. Neurological: The patient is alert and oriented x3. She is following commands. No focal deficits. She has mild tremors mostly at the level of the hands and mostly with movement. LABORATORY: WBC 21.5, hemoglobin 8.2, hematocrit 25.5, platelets 132,000. Sodium 134, potassium 5.1, chloride 89, bicarbonate 25, BUN 76, creatinine 7.1, glucose 107, calcium 5.7. Albumin 2.8. ASSESSMENT AND PLAN: 1. Symptomatic hypercalcemia on presentation, now with hypocalcemia. I will replace the calcium today. He is getting dialysis as well. She has no symptoms. Nephrology department following this patient closely. 2. Pulmonary edema with cardiomegaly likely secondary to diastolic heart failure as well as end- stage renal disease. This patient is getting scheduled dialysis. Actually, she is on dialysis right now. 3. End-stage renal disease. Continue with hemodialysis as scheduled. 4. Pneumonia continue with the same management. Infectious Disease Department on board. 5. Secondary hyperparathyroidism. Aware. 6. History of multiple myeloma. Patient follows up with Dr. Harley. 7. Anemia likely secondary to chronic kidney disease and history of malignancy, multiple myeloma. Continue to monitor. DISPOSITION: We are trying to get placement for this patient. She needs physical therapy as well. She has hypocalcemia, but she has no symptoms. We will continue to monitor. cc: MD Yeimi Baldwin MD
--- NOTE | 2017-03-11 12:27 | PROGRESS NOTE ---
DATE: 03/11/2017 SUBJECTIVE: Ms. Mcconnell is resting quietly in bed. Her son remains at her bedside. She states that she is feeling well. She denies chest pain or increased work of breathing. OBJECTIVE: Her most recent vital signs: Temperature 98.7 degrees, blood pressure 155/63, heart rate is 90, respirations are 16. She is on 2 L nasal cannula. Last recorded saturation 100%. She has had 580 in. She has had 0 recorded out with need for dialysis. Labs: Sodium 134, potassium 5.1, chloride is 89, CO2 25, BUN 76, creatinine 7.1, glucose is 107. Patient's last hemoglobin of 8.9. General: This is a 81-year-old female. She is resting quietly in bed. She is in no acute distress. Skin: Warm and dry. HEENT: Normocephalic, atraumatic. Conjunctiva is pale. She has KYRA. Mucous membranes are moist. Neck: Supple. Trachea midline. No JVD. Cardiovascular: She has regular rate and rhythm. She has a slight soft gallop, no murmur. Lungs: Clear to auscultation anteriorly. Equal excursion on O2. Abdomen: Large round soft nontender, positive bowel sounds. Genitourinary: Not inspected. Minimal void with dialysis assist. Extremities: Fistula noted to the left forearm; 1+ to 2+ lower extremity edema. Trace upper, left greater than right. Neurological: Alert and oriented x2. ASSESSMENT AND PLAN: 1. End-stage renal disease. Patient continues to require hemodialysis. We will plan to place her on a 2 K bath. She is to dialyze for 3.5 hours. We will attempt a pull her to her dry weight last post dialysis treatment. 2. Electrolyte. Continues hypocalcemic. This is iatrogenic. We will stop her sensipar and continue calcium replacement prn. 3. Acid-base balance. This remain stable. 4. Anemia. This remains low, but stable. 5. Sepsis. Patient remains on renal-dosed antibiotics per primary care. I would to thank you for allowing us to follow with this patient. Dictated by MINDI Bañuelos for Ye Moore MD Patient seen, data reviewed, discussed with Geoffrey Rosenbaum on 03/11/17. I agree with the above assessment and plan of care. cc: MINDI Bañuelos MD Adnan A. Seljuki, MD MTDD
[2017-03-11] MEDS: CALCIUM GLUCONATE 4.65 MEQ in NS 50 ML IV ONE ×3 (14:28→14:45)
[2017-03-11] MEDS: MERREM 500 MG in NS 50 ML IV SCH ×2 (14:33→14:45)
[2017-03-11] MEDS: CALTRATE 600 PO SCH ×3 (14:33→20:55)
[2017-03-11] MEDS: LEVAQUIN PO SCH ×2 (14:34→14:41)
[2017-03-11] MEDS: SENSIPAR PO SCH ×2 (14:34→14:41)
[2017-03-11] MEDS: EPOGEN SUBQ SCH ×2 (14:35→14:46)
[2017-03-11] MEDS: FOLIC ACID PO SCH ×2 (14:35→14:41)
--- NOTE | 2017-03-11 16:48 | PROGRESS NOTE ---
DATE: 03/11/2017 PRESENT ILLNESS: Ms. Mcconnell is an end-stage renal disease patient who was admitted with hypercalcemia, currently being treated for pneumonia, with previous mild infiltrates at both lung bases on CAT scan. MEDICATIONS: This is day 13 of treatment with Levaquin 250 mg p.o. daily, and meropenem 500 mg IV every 12 hours. She is also receiving Solu-Medrol 40 mg IV q.12 hours. PHYSICAL EXAMINATION: Vital Signs: Temperature is 98.4 degrees, heart rate 99 , respiratory rate 20, blood pressure 134/53. General: This is a chronically ill-appearing, elderly female, sitting in the chair at the bedside, in no acute distress. Cardiovascular: She has a regular rate and rhythm with S1, S2, and S3 noted. She has 2+ pitting edema to bilateral lower extremities. Abdomen: Soft, nontender, with bowel sounds auscultated. She has a right sided Port-A-Cath without redness, edema, or drainage. Extremities: She has an AV fistula to the left forearm with good thrill and bruit, which is covered with a dressing at this time. LAB AND X-RAYS: Her white blood cell count is 21.57, hemoglobin is 8.2, platelet count is 132,000. Her creatinine is 7.1, GFR is 7. LFTs are basically within normal limits. Previous blood cultures have been negative x2. She has no imaging studies today. We will repeat chest x- ray in the a.m. ASSESSMENT AND PLAN: The patient has pneumonia. She will continue on Levaquin and meropenem for now as this is day 13 of treatment. We will repeat a chest x-ray in the a.m. Previous plans have been discussed with and recommended by Dr. Littlejohn. COMORBIDITIES: The patient is elderly, with end-stage renal disease and hemodialysis, and multiple myeloma. Dictated by MINDI Hardwick for Clemente Littlejohn MD cc: MINDI Hardwick MD Adnan A. Seljuki, MD MTDD
--- NOTE | 2017-03-11 16:53 | PROGRESS NOTE ---
DATE: 03/11/2017 Based on the data gathered by my nurse practitioner Jen Mercado and my physical exam, I have formulated a plan of treatment which is being outlined in the progress note dictated by my nurse practitioner. cc: MD Yeimi Jean MD
[2017-03-11] MEDS: ATIVAN IV PRN (20:55)
[2017-03-12] MEDS: MERREM 500 MG in NS 50 ML IV SCH (02:32)
[2017-03-12] MEDS: DUONEB (A & A) INH SCH ×3 (03:19→22:00)
[2017-03-12] MEDS: HEPARIN SUBQ SCH ×2 (05:23→20:07)
[2017-03-12] MEDS: SOLU-MEDROL IV SCH (05:23)
[2017-03-12 07:17] LABS: BASO% 0.1 % (0.0-0.8); EOS# 0.02 X1000 (0.0-0.7); EOS% 0.1 % (0.0-10.0); HEMATOCRIT 25.8 % (37.0-47.0); HEMOGLOBIN 8.2 g/dL (12.0-16.0); IMM GRAN# 0.18 X1000 (0.0-0.04); IMM GRAN% 0.9 % (0.0-0.5); LYMPH# 0.37 X1000 (1.2-3.4); LYMPH% 1.8 % (20.5-51.1); MANUAL DIFF NEEDED? YES; MCH 28.7 PG (27-31); MCHC 31.8 g/dL (33-37); MCV 90.2 FL (81-99); MONO# 0.92 X1000 (0.11-0.59); MONO% 4.4 % (1.7-9.3); MPV 10.7 FL (7.4-10.4); NEUT% 92.7 % (42.2-75.2); PLT 111 X1000 (130-400); RBC 2.86 XMIL (4.2-5.4)
--- NOTE | 2017-03-12 07:43 | Diag Imaging Result Doc PS360 ---
EXAM: CHEST-2 VIEWS HISTORY: pneumonia TECHNIQUE: Two views COMPARISON: 11/07/2016 FINDINGS: The heart remains markedly enlarged. There is a small left pleural effusion with basilar atelectasis. Could be an underlying infiltrate as well. No change in the right jugular portacatheter. No pneumothorax. Right lung remains clear. Prominent degenerative spine changes with mild scoliosis. IMPRESSION: No significant interval change Electronically signed by Primo Mathew 03/12/2017 7:41 AM
[2017-03-12 08:04] LABS: POTASSIUM 5.2 mmol/L (3.5-5.1)
[2017-03-12 08:09] LABS: CALCIUM 6.4 mg/dL (8.8-10.2)
[2017-03-12 08:35] LABS: BANDS 1 % (0-1); HYPOCHROM 1+; LYMPHS 1 % (21-51); MONO 1 % (1-9)
[2017-03-12] MEDS: SODIUM CHLORIDE 0.9% INJ SCH ×2 (10:27→10:28)
[2017-03-12] MEDS: PROTONIX IV SCH (10:27)
[2017-03-12] MEDS: FOLIC ACID PO SCH (10:28)
[2017-03-12] MEDS: LEVAQUIN PO SCH (10:28)
[2017-03-12] MEDS: CALTRATE 600 PO SCH ×2 (10:28→20:07)
[2017-03-12] MEDS ORDERED: MEDROL DOSEPAK PO SCH (10:45)
--- NOTE | 2017-03-12 12:40 | DISCHARGE SUMMARY ---
ADMISSION DATE: 02/21/2017 DISCHARGE DATE: 03/12/2017 CONSULTATIONS: 1. Dr. Ngueyn with Hematology. 2. Dr. Moore with Nephrology. 3. Dr. Littlejohn with Infectious Disease. PERTINENT PROCEDURES: 1. Chest CT showed small left pleural effusions and left basilar atelectasis, mild infiltrates at both lung bases, marked cardiomegaly, moderate size pericardial effusion, multiple skeletal lytic lesions consistent with known multiple myeloma. 2. Echocardiogram limited views showed an EF of 60%, moderate pericardial effusion demonstrated posteriorly. 3. Abdomen and pelvis CT showed there are many scattered lytic lesions in the skeleton consistent with patient's clinical diagnosis of multiple myeloma. The bones are also osteopenic with degenerative spine changes, cholecystectomy, prominent atherosclerosis, renal stones but no hydronephrosis, possible rectal wall thickening with prominence to the ani. 4. Final chest x-ray showed small left pleural effusion with basilar atelectasis, underlying infiltrate as well. No change in the right jugular christopher catheter. No pneumothorax. Right lung remains clear. Prominent degenerative spine changes with mild scoliosis. DISCHARGE DIAGNOSES: 1. Pneumonia. Continue with IV antibiotics per Infectious Disease. 2. Symptomatic hypercalcemia on presentation, now with hypocalcemia. Symptoms have resolved. 3. Pulmonary edema with cardiomegaly secondary to diastolic heart failure as well as end-stage renal disease. The patient has continued on her scheduled dialysis. 4. End-stage renal disease followed by Nephrology. 5. Secondary hyperparathyroidism. Aware. 6. History of multiple myeloma. Followed by Dr. Harley. 7. Anemia, likely secondary to chronic kidney disease and history of malignancy, multiple myeloma. Stable. HOSPITAL COURSE: Ms Mcconnell is an unfortunate 81-year-old female with a history of multiple myeloma with mets to her bones, hypertension, COPD, anemia of chronic disease, end-stage renal disease who presented to the ED with complaint of weakness in her legs. She had seen Dr. Harley the previous Thursday. She continued to have increased weakness to the point where she came to the ED. Laboratory data was obtained that showed a white count of 14, hemoglobin and hematocrit of 8 and 24, sodium 132, BUN of 66, creatinine of 6.5 and a calcium of 13. The patient received pamidronate in the ED and initiated on normal saline with a consult for Nephrology Oncology with rechecking of her calcium level. After being assessed by Dr. Moore, she was initiated on hemodialysis given her continued hypercalcemia and her progressive symptoms. She was also found to have a left lower lobe pneumonia for which Dr. Clemente Littlejohn was consulted. He changed her antibiotic from meropenem to cefepime. This patient was originally admitted by the hospitalist service overnight and turned over to Dr. Mancini and then on 03/06 the hospitalist service had taken over again for Dr. Mancini through the remainder of her stay as of note. The patient continued to be dialyzed per Nephrology, received IV antibiotics. Cardiology was also brought on board for pericardial effusion that was reported on the CT scan. Given no signs of tamponade, they suggested just to continue with her dialysis and it should likely improve without any further intervention. They were able to fix her hypercalcemia; however, subsequently she became hypocalcemic and was having to have supplementation and she was started on cinacalcet. Despite being on broad-spectrum antibiotics, her white count has remained elevated. CT of the abdomen and pelvis did not show any other source of infection. Blood and urine cultures have all remained negative. Ms Mcconnell has been working with physical therapy. She has been tolerating a renal diet. She has placement today at [facility]. VITAL SIGNS: Temperature is 98.2 degrees, heart rate 97, respirations 18, blood pressure 113/56, O2 is 99% on 2 L nasal cannula. DISCHARGE DIET: Renal with Nepro shakes. DISCHARGE MEDICATIONS: As per Dr. Chavira. Please see MAR. FOLLOWUP: Ms Mcconnell is being discharged to [facility]. She will continue on her regular scheduled hemodialysis. She will go with antibiotics as per Dr. Clemente Littlejohn and follow up with Oncology for her multiple myeloma. Follow up with her PCP, Dr. Mancini. She will return to the ED for any worsening of symptoms. DISCHARGE TIME: Thirty-five minutes. Dictated by MINDI Antoine for Prince Funes MD cc: MD Yeimi Baldwin MD
--- NOTE | 2017-03-12 13:02 | PROGRESS NOTE ---
DATE: 03/12/2017 PRESENT ILLNESS: The patient had pneumonia, but on the x-ray done today the right lung was clear and there is a small left pleural effusion and small amount of left basilar atelectasis. MEDICATIONS: This is the 14th day of treatment with Levaquin and meropenem. The patient also is on steroids. PHYSICAL EXAMINATION: Vital Signs: Temperature is 98.2 degrees, pulse 91, respirations 16, blood pressure 113/56. General: This is a somewhat ill-appearing elderly female. She is in no acute distress. Lungs: Clear to auscultation. Cardiovascular: Regular heart rate. The patient has bilateral leg edema. Abdomen: Soft and nontender. Extremities: Patient has an AV fistula in the left arm. It is functioning well. It is not tender or draining. Chest: The patient has a right Port-A-Cath in place. That site also is not swollen or draining. LAB AND X-RAYS: CBC shows a white count of 20,790, hemoglobin 8.2, and platelet count of a 111,000. Creatinine is 5.7. GFR is 9. Chest x-ray shows left basilar atelectasis and a clear right lung. ASSESSMENT AND PLAN: I think the patient's pneumonia has cleared. I think her antibiotics can be discontinued. I would suggest stopping them today. COMORBIDITIES: Include the following: She is elderly, she has end-stage renal disease with hemodialysis, and she also has multiple myeloma. She unfortunately also has a low IgA level, which unfortunately there is not a replacement product that can increase the IgA level. cc: MD Yeimi Jean MD
--- NOTE | 2017-03-12 16:53 | PROGRESS NOTE ---
DATE: 03/12/2017 TIME SEEN: 0718. SUBJECTIVE: Ms. Mcconnell is resting quietly in bed. Head of the bed is slightly elevated. Her son is at her bedside. She denies any pain or increased work of breathing. OBJECTIVE: Vital signs: Her most recent vital signs, last temperature 98.7 degrees, blood pressure 137/53, heart rate 93, respirations 18. She is on 2 L nasal cannula. Last recorded saturation is 100%. She has had 1350 in. She has had 3502 out with 3.5 L on dialysis. General: This is a 81-year-old female. She is resting quietly in bed. Skin: Warm and dry. HEENT: Normocephalic, atraumatic. Conjunctivae pale. She has KYRA. Mucous membranes are moist. Neck: Supple. Trachea midline. No JVD. Cardiovascular: Regular rate and rhythm. Slight gallop. Lungs: Clear to auscultation anteriorly. Equal excursion. Abdomen: Large, round, soft, nontender. Positive bowel sounds. Genitourinary: Not inspected. Minimal void with dialysis assist. Extremities: Trace edema. She has a fistula to the left lower extremity. This is dry and intact. Neurologic: She is alert and oriented x3. LABORATORIES: Sodium 132, potassium 5.2, chloride is 89, CO2 27, BUN 64, creatinine 5.7, glucose 146. Her anion gap is 16, calcium of 6.4. White count 20.79, hemoglobin 8.2, hematocrit 25.8, platelet count 111,000. ASSESSMENT AND PLAN: 1. End-stage renal disease. Patient continues to require hemodialysis. We will plan for dialysis in the a.m. Otherwise, after her dialysis treatment tomorrow, patient is good for home or outpatient according to her son. We have set up an outpatient appointment upon discharge for dialysis. She is to keep that outpatient appointment. 2. Electrolytes and acid-base balance. Electrolytes: Patient remains with hypocalcemia. This is iatrogenic. She remains off her Sensipar and continues on calcium supplement. 3. Acid-base balance. This is stable. 4. Anemia. This is low, but stable. 5. Sepsis. She remains on renal-dosed antibiotics. I would to thank you for allowing us to follow with this patient. Dictated by MINDI Bañuelos for Ye Moore MD Patient seen, data reviewed, discussed with Geoffrey Rosenbaum on 03/12/17. I agree with the above assessment and plan of care. cc: MINDI Bañuelos MD Adnan A. Seljuki, MD [facility]
[2017-03-12] MEDS: MEDROL PO SCH ×2 (17:35→20:08)
[2017-03-12] MEDS: ATIVAN IV PRN (20:09)
[2017-03-13] MEDS: DUONEB (A & A) INH SCH ×3 (03:50→15:55)
[2017-03-13] MEDS: HEPARIN SUBQ SCH ×2 (06:03→15:41)
[2017-03-13 06:58] LABS: BASO% 0.1 % (0.0-0.8); EOS# 0.06 X1000 (0.0-0.7); EOS% 0.4 % (0.0-10.0); HEMATOCRIT 24.7 % (37.0-47.0); HEMOGLOBIN 7.9 g/dL (12.0-16.0); IMM GRAN# 0.12 X1000 (0.0-0.04); IMM GRAN% 0.7 % (0.0-0.5); LYMPH# 0.45 X1000 (1.2-3.4); LYMPH% 2.8 % (20.5-51.1); MANUAL DIFF NEEDED? YES; MCH 28.6 PG (27-31); MCV 89.5 FL (81-99); MONO# 1.35 X1000 (0.11-0.59); MONO% 8.4 % (1.7-9.3); NEUT% 87.6 % (42.2-75.2); PLT 92 X1000 (130-400); RBC 2.76 XMIL (4.2-5.4)
[2017-03-13] MEDS ORDERED: NS 2,000 ML MISC PRN (06:59)
[2017-03-13] MEDS ORDERED: HEPARIN IV PRN (06:59)
[2017-03-13] MEDS ORDERED: TIGHT: 0.2 ML/HR MISC PRN (06:59)
[2017-03-13] MEDS ORDERED: PROTONIX PO SCH (07:00)
[2017-03-13 07:08] LABS: POTASSIUM 5.3 mmol/L (3.5-5.1)
[2017-03-13 07:30] LABS: CALCIUM 6.5 mg/dL (8.8-10.2)
[2017-03-13 08:05] LABS: LYMPHS 6 % (21-51)
[2017-03-13] MEDS: CALTRATE 600 PO SCH (09:17)
[2017-03-13] MEDS: FOLIC ACID PO SCH (09:17)
[2017-03-13] MEDS: EPOGEN SUBQ SCH (09:17)
[2017-03-13] MEDS: MEDROL PO SCH ×2 (09:17→12:20)
[2017-03-13] MEDS ORDERED: NS 2,000 ML ONE (11:06)
[2017-03-13] MEDS ORDERED: HEPARIN ONE (11:06)
--- NOTE | 2017-03-13 11:59 | DISCHARGE SUMMARY ---
ADMISSION DATE: 02/21/2017 DISCHARGE DATE: 03/13/2017 ADDENDUM REPORT Ms. Mcconnell was discharged yesterday to [facility]. However, patient's insurance was not approved until today. The patient is stable and ready for discharge. Vital signs as follows: Temp 99.2, heart rate 93, respiratory rate 20, blood pressure 129/50, 100% on 2 L nasal cannula. Dictated by MINDI Antoine for Prince Funes MD cc: MD Yeimi Baldwin MD
--- NOTE | 2017-03-13 12:21 | PROGRESS NOTE ---
DATE: 03/13/2017 SUBJECTIVE: Ms. Mcconnell sitting up eating her breakfast. She has no complaints of chest pain. Shortness of breath, nausea, vomiting. She has been able to work with therapy. OBJECTIVE: Vital Signs: Blood pressure 129/50, heart rate 93, respirations 20, afebrile. General: She is in no acute distress. Skin: Warm and dry. Conjunctivae are pink and moist. Neck: Neck veins are not distended. Heart: Regular without gallops. Lungs: Have equal breath sounds. No crackles or wheezes. Abdomen: Soft, nontender. Bowel sounds are present. Extremities: Have 1+ edema. No clubbing or cyanosis. LABORATORY DATA: Sodium 133, potassium 5.3, chloride 89, bicarbonate 24, BUN 85, creatinine 7.2, calcium 6.5. IMPRESSION: 1. End-stage kidney disease. She will have dialysis today. She anticipates discharge today and we will arrange for outpatient dialysis thereafter. 2. Hypocalcemia. Likely related to pamidronate and cinacalcet. Both have been discontinued and I started her on Tums yesterday. 3. Acid-base. In target. 4. Anemia. Hemoglobin is lower. She is receiving erythropoietin 3 times a week. cc: MD Yeimi Anaya MD
[2017-03-13 16:12] VITALS: BP 121/57
== END 2017-03-13 16:44 ==
LOC: ED 21:45 → EDIPHOLD 02-21 06:02 → SUPCPDRO 02-21 06:02 → SUATTDRO 02-21 06:02 → 3S 02-21 12:22 → 3N 03-02 15:48
PROVIDERS: ADMIT Internal Medicine; ATTEND Internal Medicine